=== PATIENT | female | born 1990 | race Caucasian/White ===

== ENCOUNTER 2025-02-28 09:18 | Outpatient (AMB) | payer OTHER, SELFPAY ==
--- NOTE | 2025-02-28 09:19 | A.OFFVIS_ITS ---
Vital Signs 02/28/25 09:23 Height 5 ft 4.37 in Weight 123 lb BMI 20.9 BP 100/70 Blood Pressure Location Lt brachial Position Sitting Pulse 99 Pulse Source Pulse Oximeter Pulse Oximetry (%) 100 Oxygen Delivery Method Room Air Intake Visit Reasons: RA Intake Note: Patient presents today for RA. Allergies methotex Allergy (Mild, Uncoded 02/28/25 09:24) Anaphylaxis penicillin Allergy (Unknown, Uncoded 02/28/25 09:24) Anaphylaxis sulfa Allergy (Unknown, Uncoded 02/28/25 09:24) Anaphylaxis HPI HPI RA: Details: Flare occured with dental work in November. She had tooth extraction. Inplant was rejected by patient. Inplant was removed. She developed joint swelling in feet, ankles, and shoulders are locked - unable to move them up. Last tooth infection was in November. No recent infections. 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 Good respiratory effort Skin: No lesions seen MSK: Tender to palpate right 3rd MCP. Tender to palpate left 3rd PIP. Tender bilateral shoulders. Right shoulder abduction 45 degrees with limited external and internal rotation. Mild synovitis in bilateral knees left worse than right without tenderness on palpation. Normal range of motion of lower extremities. Tender right MTPs with synovitis present. Assessment & Plan Assessment & Plan (1) Rheumatoid arthritis: Comment: Uncontrolled. Flared after tooth extraction and dental implant. Code(s): M06.9 - Rheumatoid arthritis, unspecified Category: Medical Plan: Prednisone course prescribed [facility] Baseline labs ordered prior to restarting DMARD therapy Return to clinic in 1-2 months to discuss DMARD therapy She will be seeking another dentist opinion prior to pursuing dental implant again Letter for work written for patient Orders: Orders Creatinine Today M06.9 - Rheumatoid arthritis, unspecified C Reactive Protein Today M06.9 - Rheumatoid arthritis, unspecified Erythrocyte Sedimentation Rate Today M06.9 - Rheumatoid arthritis, unspecified Hepatitis B Core Antibody Today M06.9 - Rheumatoid arthritis, unspecified Hepatitis C Antibody Today M06.9 - Rheumatoid arthritis, unspecified T Spot TB Today M06.9 - Rheumatoid arthritis, unspecified Complete Blood Count Man Dif Today M06.9 - Rheumatoid arthritis, unspecified Alanine Aminotransferase Today M06.9 - Rheumatoid arthritis, unspecified Aspartate Amino Transferase Today M06.9 - Rheumatoid arthritis, unspecified Hepatitis B Surface Antigen Today M06.9 - Rheumatoid arthritis, unspecified Medications: New prednisone Take 4 tablets daily 5 days, 3 tablets daily 5 days, 2 tablet daily 5 days, 1 tablet daily 5 days then stop. Take prednisone with food. 5 mg PO DIRECTED 50 tabs 0RF omeprazole Take while on prednisone. 20 mg PO DAILY 30 caps 0RF Coding Level of Care Code Est Pt Level 4 (04045) Complex EM visit Add On G2211 Diagnoses Rheumatoid arthritis M06.9
[2025-02-28 09:23] VITALS: BP 100/70; PULSE 99; O2SAT 100; BMI 20.9
--- OUTSIDE RECORDS SUMMARY | 2025-02-28 10:07 | XMS_ITS | Encounter Summary ---
Author Organization [facility] Address [address] [place] [phone] Phone Care Team Providers Care Field Director Name Role Phone Richa Reyes MD Primary Care Provider Encounter Details Date Type Department Care Team (Late st Contact Info) Description 05/07/2017 Conversion Encounter [facility] [place] [address] [place] [address] Social History Tobacco Use Types Packs/Day Years Used Date Smoking Tobacco: Never Assessed Comments Unknown Sex and Gender Information Value Date Recorded Sex Assigned at Not on file Legal Sex Female 4:15 PM EDT Gender Identity Not on file Sexual Orientation Not on file documented as of this encounter Plan of Treatment Not on file documented as of this encounter Visit Diagnoses Not on filedocumented in this encounter Care Teams Field Director Relationship Specialty Start Date End Date Richa Reyes MD [address] [place] [address] PCP - General 05/01/17 12/21/22 documented as of this encounter
== END 2025-02-28 10:16 | disposition home or self-care (01) ==
LOC: HO.RHES 09:18
PROVIDERS: PCP Internal Medicine; Visit Provider Internal Medicine Rheumatology
DX: M06.9 Rheumatoid arthritis, unspecified (principal)
CPT/HCPCS: 99214; G2211

== ENCOUNTER → 2025-02-28 09:18 | Outpatient (BNVA) | payer OTHER, SELFPAY | PROVIDERS: PCP Internal Medicine; Visit Provider Internal Medicine Rheumatology | DX: M06.9 Rheumatoid arthritis, unspecified (principal) | CPT/HCPCS: 99212 ==

== ENCOUNTER 2025-04-17 13:11 | Outpatient (REF) | payer OTHER, SELFPAY ==
--- OUTSIDE RECORDS SUMMARY | 2025-04-17 13:56 | XMS_ITS | Clinical Summary ---
Author Organization [facility] Address [address] [place] [phone] Phone Care Team Providers Care Residential Monitor Name Role Phone Gordon Johns MD Primary Care Provider + Allergies Active Allergy Reactions Criticality Noted Date Comments Etanercept Swelling 11/10/2019 Adalimumab Hives 03/14/2020 Penicillins High 10/21/2018 Causes breathing problems Sulfa (Sulfonamide Antibiotics) High 10/21/2018 Causes breathing problems Medications norgestimate-et hinyl estradiol (TRI-PREVIFEM, 28,) 0.18/0.215/0.25 mg-35 mcg (28) Tab daily. Active valACYclovir (VALTREX) 500 MG tablet Take 500 mg by mouth daily as needed. Active fluconazole (DIFLUCAN) 200 MG tablet Take one pill PO day 1, then take 1/2 pill daily for the next 6 days. 4 tablet 9 Active Additional Information Patient not taking.Reported on 08/12/2019 predniSONE (DELTASONE) 5 MG tablet TAKE 1&1/2 PILLS BY MOUTH DAILY FOR 3 WEEKS. THEN TAPER TO 1 PILL BY MOUTH DAILY FOR 3 WEEKS. 52 tablet 9 Active Additional Information Patient not taking.Reported on 09/16/2019 leflunomide (ARAVA) 20 MG tablet TAKE 1 TABLET BY MOUTH EVERY DAY 30 tablet 1 0 Active Additional Information Patient not taking.Reported on 06/05/2020 FLUCONAZOLE ORALIndications :11/10/19 has not started yet every 3 (three) days. Indications: 11/10/19 has not started yet Active predniSONE (DELTASONE) 5 MG tablet Take pills PO daily. 45 tablet 2 0 Active Additional Information Patient not taking.Reported on 03/14/2020 predniSONE (DELTASONE) 5 MG tablet Take 1 tablet (5 mg total) by mouth daily. 7 tablet 0 Active Additional Information Patient not taking.Reported on 06/05/2020 azaTHIOprine (IMURAN) 50 mg tablet TAKE 1 TABLET BY MOUTH TWICE A DAY 180 tablet 2 0 Active Additional Information Patient not taking.Reported on 08/08/2020 cyclobenzaprine (FLEXERIL) 10 MG tablet 10 mg daily. Active FLUoxetine (PROZAC) 10 MG capsule 10 mg daily. Active ibuprofen (ADVIL,MOTRIN) 600 MG tablet 600 mg as needed. Active LORazepam (ATIVAN) 0.5 MG tablet as needed. Active methocarbamoL (ROBAXIN) 500 MG tablet 500 mg as needed. Active Active Problems Problem Noted Date Diagnosed Date Acute foot pain, right 08/08/2020 Drug-induced skin rash 12/16/2019 Oral thrush 07/06/2019 Rheumatoid arthritis involvi ng multiple sites with positive rheumatoid factor 05/25/2019 Family History Medical History Relation Comments Diabetes Maternal Grandfather Lymphoma Maternal Grandfather Breast cancer Maternal Grandmother Osteoarthritis Mother Rheumatoid arthritis Paternal Grandmother Breast cancer Sister Relation Status Comments Father Alive Maternal Grandfather Maternal Grandmother Mother Alive Paternal Grandmother Sister Social History Tobacco Use Types Packs/Day Years Used Date Smoking Tobacco: Every Day Cigarettes Smokeless Tobacco: Never Education Answer Date Recorded Are you interested in more education? Not on sun e 01/16/2023 Are you concerned about learning? Not on file 01/16/2023 No 01/16/2023 No 01/16/2023 Digital Access Answer Date Recorded No 02/17/2023 No 02/17/2023 No 02/17/2023 Reliable internet access at home? Not on file 02/17/2023 Device with a working camera? Not on file Comments Unknown Sex and Gender Information Value Date Recorded Sex Assigned at Not on file Legal Sex Female 10:49 AM EDT Gender Identity Not on file Sexual Orientation Not on file Last Filed Vital Signs Vital Sign Reading Time Taken Comments Blood Pressure 124/86 08/08/2020 2:41 PM EST Pulse - - Temperature 36.6 C (97.8 F) 08/08/2020 2:41 PM EST Respiratory Rate - - Oxygen Saturation - - Inhaled Oxygen Concentration - - Weight 49 kg (108 lb) 09/03/2020 11:05 AM EST Height 157.5 cm (5' 2 ) 09/03/2020 11:05 AM EST Body Mass Index 19.75 09/03/2020 11:05 AM EST Plan of Treatment Health Maintenance Due Date Last Done Comments DEPRESSION SCREENING 2000 SMOKING Hx and SMOKELESS TOBACCO SCREENING 2001 HEPATITIS C SCREENING 2006 HIV ONE-TIME SCREENING (18-65 YEARS) 2006 PNEUMOCOCCAL VACCINES (0-49 years) (1 of 2 - PCV) 12/09/2007 PAP SMEAR 2009 Adult Td,Tdap Booster 03/26/2011 03/26/2001 CREATININE LEVEL 04/23/2021 04/23/2020, , 05/25/2019 ALKALINE PHOSPHATASE LEVEL 06/23/202106/23, 04/23/2020, 09/16/2019, Additional history exists COVID-19 VACCINE (3 - Pfizer risk series) 10/22/2021 09/24/2021, 09/03/2021 HIB VACCINES Completed 06/20/1990 HEPATITIS A VACCINES Aged Out No long er eligible based on patient's age to complete this topic MENINGOCOCCAL VACCINES (ACWY) Aged Out No longer eligible based on patient's age to complete this topic MENINGOCOCCAL VACCINES (B) Aged Out N o longer eligible based on patient's age to complete this topic Medical Devices Not on file Procedures Procedure Name Priority Date/Time Associated Diagnosis Comments LFTS (HEPATIC PANEL) Routine 06/23/2020 12:44 PM EDT Rheumatoid arthritis involving multiple sites with positive rheumatoid factor COMPREHENSIVE METABOLIC PANEL Routine 04/23/2020 1:35 PM EDT Rheumatoid arthritis involving multiple sites with positive rheumatoid factor from Last 3 Months or Most Recently Relevant to Health Maintenance Results * (ABNORMAL) LFTs (hepatic panel) (06/23/2020 12:44 PM EDT) ALKALINE PHOSPHATASE 38(L) 39 - 117 U/L [facility] TOTAL BILIRUBIN 0.4 0.0 - 1.2 mg/dL [facility] DIRECT BILIRUBIN <0.2 0 - 0.3 mg/dL [facility] Bilirubin (Indirect) NOT CALCULATED 0 - 1.5 mg/dL [facility] AST 20 0 - 37 U/L [facility] ALT 13 0 - 40 U/L [facility] TOTAL PROTEIN 7.0 6.5 - 8.0 g/dL [facility] ALBUMIN 4.6 3.9 - 4.8 g/dL [facility] GLOBULIN 2.4 1 - 4.8 g/dL [facility] A/G Ratio 1.92 1.00 - 4.80 RATIO [facility] Blood 06/23/2020 12:4 4 PM EDT 06/23/2020 12:45 PM EDT us [facility] ORDERABLES Fi nal Result Performing Organization Address City/State/[facility] Co de Phone Number [address] [phone] * (ABNORMAL) Comprehensive metabolic panel (04/23/2020 1:35 PM EDT) SODIUM 137 133 - 146 mmol/L [facility] POTASSIUM 4.2 3.3 - 5.1 mmol/L [facility] CHLORIDE 103 96 - 108 mmol/L [facility] CO2 26 21 - 35 mmol/L [facility] BUN 7 6 - 19 mg/dL [facility] CREATININE 0.60 0.5 - 1.5 mg/dL [facility] GLUCOSE 91 70 - 99 mg/dL [facility] ALBUMIN 4.3 3.9 - 4.8 g/dL [facility] TOTAL PROTEIN 6.4(L) 6.5 - 8.0 g/dL [facility] CALCIUM 8.7 8.4 - 10.3 mg/dL [facility] ALKALINE PHOSPHATASE 32(L) 39 - 117 U/L [facility] TOTAL BILIRUBIN 0.3 0.0 - 1.2 mg/dL [facility] AST 22 0 - 37 U/L [facility] ALT 12 0 - 40 U/L [facility] GLOBULIN 2.1 1 - 4.8 g/dL [facility] EGFR >120 >59 mL/min/1.7 3m2 [facility] Comment:Estimated glomerular filtration rate calculated using the CKD-EPI equation. ANION GAP 12 10 - 20 mmol/L [facility] Blood 04/23/2020 1:35 PM EDT 04/23/2020 1:36 PM EDT [facility] ORDER[facility] nal Result [facility] [address] [place] [address] from Last 3 Months or Most Recently Relevant to Health Maintenance [place] [address] [place] [address] [facility] [employer] [facility] [employer] [facility] [employer] DIRECT [employer] [place] [address] [address] [place] [address] [employer] DIRECT [employer] DIRECT [employer] [place] [address] [employer] DIRECT [facility] DIRECT Care Teams Residential Monitor Relationship Specialty Start Date End Date Gordon Johns MD [address] [place] [address] [address] [place] [address] PCP - General Internal Medicine 05/03/19 Additional Source Comments The information contained in this document represents components of the legal health record. It is not the complete legal health record.[facility]
--- OUTSIDE RECORDS SUMMARY | 2025-04-17 13:56 | XMS_ITS | Data Portability ---
Author Organization [facility] Address [address] [place] [address] Care Team Providers Care Barrel Bridge Assembler Name Role Phone MALLORY NDIAYE Primary Care Provider Assessment No assessment recorded. Plan of Treatment Reminders Order Date Submit Date Provider Last Modified By Organization Details Last Modified Time Details Appointments None recorded. Lab rapid strep group A, throat 2022 023 [email or web address] [facility], [address] [place] [address], [id number], 17:43:42 culture, respiratory 2022 023 [place] [facility], [address] [place] [address], [place], [address], 3 12:05:50 Referral None recorded. Procedures None recorded. Surgeries None recorded. Imaging None recorded. Medication Orders cyclobenzap rine 5 mg tablet 2022 023 [facility][id number], [address] [place], [address], 3 08:06:36 meloxicam 7.5 mg tablet 2022 023 [facility]1972, [address] [place], [address], 3 08:06:36 Patient TargetsNo targets recorded. Patient Instructions Encounter Date Encounter Id Patient Instructions Last Modified By Organization Details Last Modified Time 03/18/2023 [id number] sore throat: car e instructions [email or web address] Not available 03/18/2023 17:43:41 Based on your Presentation, Exam, and Lab Testing you are being diagnosed with Pharyngitis. Your Rapid Strep Test was Negative. Most likely your sore throat is being caused by a virus, post nasal drip, or silent acid reflux. I am going to send a Throat Culture to the lab for you to make sure you don't have a different form of strep in your throat. This will take about 72 hours for that result to return. We will contact you if it positive - if for some reason you don't get a copy of your results or hear from us - please contact our office. The following are my other recommendations to help with symptoms and is important for this diagnosis: 1. Do not share any food or drinks - strep is passed through direct saliva exchange (NOT IN THE AIR) 2. Take Ibuprofen or Tylenol if you do not have any allergies to these medications. If you take a blood thinner you should not take NSAIDS like Ibuprofen. These medication will help with the inflammation in your respiratory tract which should help the cough. (I would alternate between Tylenol 650 mg and your Ibuprofen 600 mg every 4 hours) 3. Do not take any Cold Medications that have a Decongestant in it - this will dry out your throat and make the sore throat worse. 4. Drinking Hot Tea with honey can help coat and soothe your throat. 5. You would be considered contagious for the next 24-48 hours, or until fever resolves. I would be seen again if you develop any of the following symptoms. 1. Fever > 101.0 2. Stiff neck - where you can't turn your neck 3. Trouble swallowing your saliva - drooling 4. Swelling of a lymph node in your throat that is painful to touch 5. Difficulty breathing 6. Severe Headache Thank you for using [facility] today, please feel free to contact our office if you have any questions or concerns. Not available 03/18/2023 17:43:39 03/22/2023 [id number] neck spasm: exercises [email or web address] Not available 03/24/2023 00:27:55 neck spasm: care instructions [email or web address] Not available 03/24/2023 00:27:55 You are being diagnosed with a Trapezius Muscle spasm based on your exam. The following are my recommendations to help with your symptoms: 1. Heating pad to the back of the neck. 2. Stretch your neck regularly 3. Try to sleep with 1 pillow and support the arm. 4. It is ok to Take Tylenol with what I gave you. You were prescribed Prednisone - Here is some general Information regarding this medication. 1. Make sure you take with Food 2. Do not take right before bedtime -this should be taken during the day because it may make you a little more wired. May keep you from sleeping. 3. Prednisone will increase glucose -so if you are a diabetic then you will need to monitor your glucose closely. Please d/c if glucose goes above 300. 4. Do not take this medication with Ibuprofen You were prescribed a Muscle relaxant - this may make you drowsy. Do not drive with the medication. Also you only have to take this medication as needed. You do not need to complete the full course. Please go immediately to the Emergency room if you develop any: 1. Shortness of breath 2. Coughing up blood 3. Significant chest pain 4. or Dizziness.light headedness Thank you for using [facility]. Please feel free to contact us if you have any questions or concerns. [email or web address] Not available 03/22/2023 20:14:48 Reason for Referral None Reported. Results Created Date Observation Date Name Description Value Unit Range Abnormal Flag Note LastModifiedBy Organization Detail LastModifiedTime 03/18/20 23 03/22/2023 UPPER RESPI RATOR Y CULTU RE upper respiratory culture FINAL REPORT Not Available [facility] ([facility]) [address] [place], [address], 03/22/2023 12:05:50 03/18/20 23 03/22/2023 UPPER RESPI RATOR Y CULTU RE result 1 COMMEN T Routi ne respi rator y dinora Not Available [facility] ([facility]) [address] [place], [address], 03/22/2023 12:05:50 03/18/20 23 03/18/2023 rapid strep group A, throa t Unknown Analyte Normal = Negati ve Not Available [address] [facility], [place], [address], 03/18/2023 17:16:20 03/18/20 23 03/18/2023 rapid strep group A, throa t Unknown Analyte negati ve Not Available [address] [place] [address], [place], [address], 03/18/2023 17:16:20 Result Notes None recorded. Problems Name Problem SNOMED Code Status Onset Date Resolution Date Notes Provider Name and Address Organization Details Recorded Time Myocardial infarction 64758374 Completed 202103/21/2022 DARRON georges PA - [facility] 19:35:44 Rheumatoid arthritis 16951213 Active 2022 LELO georges PA - [facility] 17:12:02 Problem Notes None recorded. Procedures Surgical History Date Name Laterality Status Provider Name and Address Organization Details Recorded Time Appendectomy completed LELO KNOTT PA - [facility] 03/18/2023 17:13:23 hysterectomy completed LELO KNOTT PA - [facility] 03/18/2023 17:13:40 Imaging Results None recorded. Procedure Notes None recorded. Medical Equipment None Reported. Allergies Allergen ID Allergen Name Allergen Category Reaction Reaction Severity Criticality Documentation Date Start Date Code Code System Note Provider Name and Address Organization Details Recorded Time 031533 Substance with sulfonami de structure and antibacte rial mechanism of action (substanc e) medicatio n Not available Not available Not available 03/18/2023 89904 8003 SNOMED LELO georges PA - [facility] 17:10:51 080218 Product containin g penicilli n (product) medicatio n Not available Not available Not available 03/18/2023 45561 8001 SNOMED LELO georges, PA - [facility] 17:10:57 Medications Name Sig Start Date Stop Date Status Note LastModified by Organization Details LastModified Time cetirizine 10 mg tablet TAKE ONE PILL ONCE DAILY FOR ITCHING. active Not Available Not Available No t Available fluconazole 150 mg tablet TAKE 1 TABLET BY MOUTH EVERY 72 HOURS active Not Available Not Available No t Available prednisone 5 mg tablet TAKE 4 TABS DAILY 5 DAYS, 3 TABS DAILY 5 DAYS, 2 TABS DAILY 5 DAYS, 1 TAB DAILY 5 DAYS THEN STOP active Not Available Not Available No t Available leflunomide 10 mg tablet TAKE 1 TABLET DAILY active Not Available Not Available No t Available Remicade 100 mg intravenous solution Inject by intravenous route. active Not Available Not Available No t Available metronidazol e 500 mg tablet TAKE 1 TABLET BY MOUTH FOUR TIMES A DAY active Not Available Not Available Not Available amlodipine 5 mg tablet TAKE 1 TABLET BY MOUTH EVERY DAY active Not Available Not Available No t Available ciprofloxaci n 500 mg tablet TAKE 1 TABLET BY MOUTH TWICE A DAY active Not Available Not Available No t Available aspirin 81 mg tablet,delay ed release TAKE 1 TABLET BY MOUTH EVERY DAY active Not Available Not Available No t Available Nicotrol 10 mg inhalation cartridge PLEASE DISPENSE INHALER AND WITH CARTIDGES. USE IN COMBINATION WITH PATCH. active Not Available Not Available Not Available meloxicam 7.5 mg tablet TAKE 1 TABLET BY MOUTH EVERY DAY active Not Available Not Available No t Available oxycodone-ac etaminophen 5 mg-325 mg tablet TAKE 1 TABLET BY MOUTH EVERY 6 HOURS NEEDED active Not Available Not Available No t Available propranolol 10 mg tablet TAKE 1-2 TABLET BY MOUTH TWICE A DAY active Not Available Not Available No t Available triamcinolon e acetonide 0.1 % topical ointment APPLY TO SKIN FROM THE NECK DOWN ONCE TO TWICE DAILY NEEDED. active Not Available Not Available No t Available nicotine 21 mg/24 hr daily transdermal patch APPLY 2 PATCHES TOPICALLY DAILY FOR AT LEAST 3 MONTHS (42MG/DAY) active Not Available Not Available N ot Available nitroglyceri n 0.[address] 1TAB UNDER TONGUE DAILY NEEDED ONSET CHEST PAIN MAY REPEAT EVERY 5 MINS. MAX 3W/IN 15MINS. active Not Available Not Available No t Available docusate sodium 100 mg capsule TAKE 1 CAPSULE BY MOUTH TWICE A DAY active Not Available Not Available No t Available sertraline 25 mg tablet TAKE 1 TABLET BY MOUTH EVERY DAY active Not Available Not Available No t Available ondansetron 4 mg disintegrati ng tablet TAKE 1 TABLET BY MOUTH EVERY 8 HOURS NEEDED active Not Available Not Available No t Available neomycin-fausto ymyxin-hydro anahy 3.5 mg-10,000 unit/mL-1 % ear drops,susp INSTILL 4 DROPS INTO AFFECTED EAR(S) 3 TIMES A DAY active Not Available Not Available Not Available cyclobenzapr ine 5 mg tablet TAKE 1 TABLET BY MOUTH EVERYDAY AT BEDTIME NEEDED MUSCLE SPASMS active Not Available Not Available No t Available aspirin active Not Available Not Avail able Not Available amlodipine active Not Available Not Av ailable Not Available leflunomide active Not Available Not A vailable Not Available Tri-Estaryll a (28) 0.18 mg(7)/0.215 mg(7)/0.25 mg(7)-0.035 mg tablet TAKE 1 TABLET BY MOUTH EVERY DAY active Not Available Not Available No t Available Paxlovid 300 mg (150 mg x 2)-100 mg tablets in a dose pack TAKE 3 TABLETS BY MOUTH TWICE A DAY active Not Available Not Available No t Available Vitals Date Recorded Body height Body mass index (BMI) Body weight Oxygen saturation Oxygen saturation in Arterial blood by Pulse oximetry Heart rate Respiratory rate Body temperature Systolic And Diastolic Provider Name and Address Organization Details Last Updated DateTime 3 157.48 cm 20.1 kg/m2 55970.1 6 g 98 % 98 % 72 /min 18 /min 98.2 [degF] 132/88 mm[Hg] LELO KNOTT PA - [facility] 3 17:15:41 Date Recorded Body height Body mass index (BMI) Body weight Pain severity - 0-10 verbal numeric rating [Score] - Reported Oxygen saturation Oxygen saturation in Arterial blood by Pulse oximetry Heart rate Respiratory rate Body temperature Systolic And Diastolic Provider Name and Address Organization Details Last Updated DateTime 3 157.48 cm 20.1 kg/m2 26390.1 6 g 9 97 % 97 % 94 /min 16 /min 98.2 [degF] 126/78 mm[Hg] DARRON COPPOLA PA - [facility] 3 19:38:45 Social History Question Answer Notes LastModified by Organizat ion Details LastModified Time Tobacco Smoking Status Current Every Day Smoker [facility] 03/18/2023 17:13:59 Which Illicit Or Recreational Drugs Have You Used? Marijuana Information not available 03/18/2023 Have You Had Direct Contact, Or Contact During Intimacy, With Monkeypox Rash, Scabs, Or Body Fluids From A Person With Monkeypox? No Information not available 03/18/2023 How Much Tobacco Do You Smoke? 0.5 PPD Information not available 03/18/2023 Have You Recently Traveled Abroad? No Information not available 03/18/2023 Are You Currently In School? No Information not available 03/18/2023 Sex: Unknown Functional Status Question Answer Note LastModified by Organizat ion Details LastModified Time Do you use any illicit or recreational drugs? Yes Information not available 03/18/2023 Do you or have you ever used any other forms of tobacco or nicotine? No Information not available 03/18/2023 What is your level of alcohol consumption? Occasional Information not available 03/18/2023 Are you currently employed? Yes Information not available 03/18/2023 Mental Status None recorded. Family History Relationship Description Onset Age of this Age Resolved Age Notes LastModified by Organization Details LastModified Time Father No current problems or disability Not available 02/20 17:13:15 Mother No current problems or disability Not available 02/20 17:13:15 Medical History No medical history recorded. Gynecological History Statement/Question Response Is there any chance of ? No Obstetrics History GPAL:G 0 P 0 0 0 0 Immunizations Vaccine Type Date Status Note Provider Nam e and Address Organization Details Recorded Time COVID-19, mRNA, LNP-S, PF, 30 mcg/0.3 mL dose 09/24/2021 completed LELO KNOTT null, PA - [facility] 03/18/2023 17:10:43 COVID-19, mRNA, LNP-S, PF, 30 mcg/0.3 mL dose 09/03/2021 completed LELO KNOTT null, PA - [facility] 03/18/2023 17:10:43 Past Encounters Encounter ID Performer Location Encounter Start Date Encounter Closed Date Diagnosis/Indication Diagnosis SNOMED-CT Code Diagnosis ICD10 Code Diagnosis Note [id number] [facility]O FRIAS [address] [place] [address] 03/18/2023 16:20:37 03/18/2023 17:45:11 Acute pharyngitis 096451276 J02.9 [id number] [facility]ERTO FRIAS [address] [place] [address] 03/22/2023 19:09:45 03/22/2023 20:16:11 Muscle spasm of cervical muscle of neck 1971599756 04 M62.838 Health Concerns Section Related Observation LastModified by Organization Detai ls LastModified Time None Recorded Concern Status LastModified by Organization Details LastModified Time None Recorded Advance Directives Directive None Recorded Payers Insurance Date Sequence Insurance Name Policy Number Policy Tom Covered Member ID Tom Member ID Guarantor Name 03/18/2023 1 [facility] (POS) [id number] Mami E Foucher [id number] Mami Foucher 03/22/2023 1 [facility] PUBLIC [employer] - DIRECT CONNECTORCARE TYPE I (HMO) [id number] Mami E Foucher [id number] Mami Foucher OBGyn Episode No OBEpisode recorded.
--- OUTSIDE RECORDS SUMMARY | 2025-04-17 13:56 | XMS_ITS | Encounter Summary ---
Author Organization [facility] Address [address] [place] [address] Phone Care Team Providers Care President & Founder Name Role Phone Richa Reyes MD Primary Care Provider Encounter Details Date Type Department Care Team (Late st Contact Info) Description 05/07/2017 Conversion Encounter [facility] [place] [address] [place] [address] Social History Tobacco Use Types Packs/Day Years [...] on filedocumented in this encounter Care Teams President & Founder Relationship Specialty Start Date End Date Richa Reyes MD [address] [place] [address] PCP - General 05/01/17 12/21/22 documented as of this encounter
--- OUTSIDE RECORDS SUMMARY | 2025-04-17 13:56 | XMS_ITS | Encounter Summary ---
Author Organization [facility] Address [address] [place] [address] Care Team Providers Care Geotechnicial Properties Technician Name Role Phone Uche Iglesias DO Primary Care Provider Umesh Maracno MD Unavailable [phone] Flower Hummel PA-C Primary Care Provider Un available Mary Sharma MACHINE SETTER Unavailable [phone] Johana Mauricio MACHINE SETTER Unavailable [phone] Encounter Details Date Type Department Care Team Description 05/30/2022 SCAN Medical Records [address] [place] [address] Abstract, Provider Social History Tobacco Use Types Packs/Day Years Used Date Smoking Tobacco: Every Day Cigarettes 1 Smokeless Tobacco: Former Alcohol Use Standard Drinks/Week Comments Yes 0 (1 standard drink = 0.6 oz pur e alcohol) rarely Sex Assigned at Date Recorded Not on file documented as of this encounter Plan of Treatment Not on file documented as of this encounter Procedures Procedure Name Priority Date/Time Associated Diagnosis Comments OUTSIDE EKG Routine 05/30/2022 documented in this encounter Results * OUTSIDE EKG (05/30/2022) Provider Abstract CARDIOLOGY documented in this encounter Visit Diagnoses Not on filedocumented in this encounter Care Teams Geotechnicial Properties Technician Relationship Specialty Start Date End Date Uche Iglesias DO PCP - General Internal Medicine 06/29/18 10/14/22 Flower Hummel PA-C [address] [place] [address] [address] [place] [address] PCP - General Internal Medicine 10/15/22 Umesh Zuniga MD [address] [place] [address] [address] [place] [address] Machine Learning Intern Cardiovascular Disease 08/29/22 Mary Sharma NP [address] [place] [address] [address] [place] [address] Nurse Practitioner Cardiology 06/10/23 12/17/23 Johana Mauricio NP [address] [place] [address] [facility] [place] [address] Nurse Practitioner Cardiology 07/01/23 documented as of this encounter
[2025-04-17 17:38] LABS: Baso%MD 1.1 %; Eos%MD 3.8 %; Hematocrit 45.8 % (37.0-47.0); Hemoglobin 14.9 g/dl (12.0-16.0); IG%MD 0.3 %; Lymph%MD 28.8 %; Mean Corpuscular HGB Conc 32.5 g/dl (31.0-35.0); Mean Corpuscular Hemoglobin 30.5 pg (27.0-33.0); Mean Corpuscular Volume 93.9 fL (80.0-98.0); Mono%MD 7.8 %; NRBC Abs Auto 0.000 X10*3/uL (0.0-0.012); NRBC Pct Auto 0.0 /100WBC (0.0-0.2); Neut%MD 58.2 %; Platelet Count 305 X10*3/uL (160-400); Red Blood Count 4.88 X10*6/uL (4.20-5.50); White Blood Count 9.2 X10*3/uL (4.8-10.8)
[2025-04-17 17:49] LABS: Alanine Aminotransferase 19 U/L (0-31); Aspartate Amino Transferase 27 U/L (5-31); Estimated Glomerular Filt Rate > 60
[2025-04-17 18:17] LABS: Atypical Lymph Absolute Manual 0.2 x10*3/uL; Atypical Lymphs Percent Manual 2 % (0-6); Band Neutrophils Percent 0 % (3-5); Basophils Abs Manual 0.2 X10*3/uL (0.0-0.2); Basophils Percent Manual 2 % (0-2); Eosinophils Absolute Manual 0.1 X10*3/uL (0.0-0.4); Eosinophils Percent Manual 1 % (0-4); Lymphocytes Absolute Manual 2.1 X10*3/uL (1.2-4.9); Lymphocytes Percent Manual 23 % (20-40); Monocytes Absolute Manual 1.0 X10*3/uL (0.1-1.2); Monocytes Percent Manual 11 % (2-11); Myelocytes Absolute 0.1 X10*/uL; Myelocytes Percent 1 %; Neutrophils Absolute Manual 5.5 X10*3/uL (2.0-8.3); Neutrophils Percent Manual 60 % (45-73)
[2025-04-17 18:18] LABS: RBC Morphology NORMAL
[2025-04-18 03:57] LABS: HBc Num1 0.07 S/CO (0.00-0.79); HBsAGNum1 0.34 S/CO (0.00-0.99); Hepatitis B Surface Antigen Negative (Negative); ~HepC Num1 0.09 S/CO (0.00-0.79); ~Hepatitis C Antibody Nonreactive (Nonreactive)
[2025-04-20 11:08] LABS: TS Negative Control Passed; TS Panel A 0; TS Panel B 0; TS Positive Control Passed; TSpotTB Negative (Negative)
== END 2025-04-17 13:12 | disposition home or self-care (01) ==
LOC: HO.HKASLDS 13:11
PROVIDERS: Visit Provider Internal Medicine Rheumatology
DX: M06.9 Rheumatoid arthritis, unspecified (principal)
CPT/HCPCS: 36415; 82565; 84450; 84460; 85007; 85027; 85652; 86140; 86481; 86704; 86803; 87340

== ENCOUNTER 2025-04-25 10:38 | Outpatient (AMB) | payer OTHER, SELFPAY ==
[2025-04-25 11:06] VITALS: BP 110/80; PULSE 76; O2SAT 100; BMI 21.3
--- NOTE | 2025-04-25 11:06 | A.OFFVIS_ITS ---
Vital Signs 04/25/25 11:06 Height 5 ft 4 in Weight 124 lb BMI 21.3 BP 110/80 Blood Pressure Location Lt brachial Position Sitting Pulse 76 Pulse Source Pulse Oximeter Pulse Oximetry (%) 100 Oxygen Delivery Method Room Air Intake Visit Reasons: 2 months Intake Note: Patient presents today for RA. Accompanied by: Self / Same As Patient Allergies methotex Allergy (Mild, Uncoded 02/28/25 09:24) Anaphylaxis penicillin Allergy (Unknown, Uncoded 02/28/25 09:24) Anaphylaxis sulfa Allergy (Unknown, Uncoded 02/28/25 09:24) Anaphylaxis HPI HPI 2 months: Details: She had relief with prednisone course. Pain and swelling returned after she completed prednisone course. Right ankle is swollen. She continues to have pain in multiple joints. Morning stiffness is 30 minutes. 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 Good respiratory effort Skin: No lesions seen MSK: Tender to palpate bilateral MCPs and PIPs. Tender bilateral shoulders. Right shoulder abduction 160 degrees degrees with limited external and internal rotation due to pain. Mild left suprapatellar effusion with tenderness on palpation. Normal range of motion of lower extremities. Tender bilateral MTPs with right MTP synovitis present. Assessment & Plan Assessment & Plan (1) Rheumatoid arthritis: Comment: Uncontrolled. Flared after tooth extraction and dental implant. She had temporary benefit with prednisone course. She is planning to have another dental procedure to have a cap placed next week. We discussed next steps in treatment. We also discussed the risk of infection with prednisone use. We discussed treatment with Actemra versus Orencia. Discussed mechanism of action, side effects, benefits and drug monitoring. 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 Failed NSAIDs meloxicam and naproxen initially for treatment of palindromic rheumatism. Hydroxychloroquine caused a trunk rash and aggression. Mouth sores on methotrexate 7.5 mg once weekly with folic acid. Enbrel caused drug rash with hives that lasted 2 months. Humira caused rash with hives. Reaction to Cimzia where she locked up the InStent she gave herself the subcutaneous injection and could not move afterwards. Remicade induction dose March 2021 1st dose caused abdominal pain, loose stools, ear popping, rhinorrhea. She then developed ear infection and thrush. She had no future reaction or infection after 2nd induction dose without pretreatment. 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 She was on leflunomide 01/2023-01/2024. Recurrent URIs with combination Xeljanz and leflunomide leading to discontinuation January 2025. Prednisone >than 20 mg q.day causes aggression. Code(s): M06.9 - Rheumatoid arthritis, unspecified Category: Medical Plan: She will start course of prednisone after follow up visit with dentist status post dental procedure. At that point she would have also completed prophylactic antibiotic with Z-Ezio. If there is no risk for infection at follow-up visit with dentist, she will then start prednisone course for RA management. Prednisone course prescribed. Lipid panel ordered After lab results is back, I will process PA for Actemra 162mg subcutaneous injection. Once Actemra is approved, she will need nurse teaching visit for 1st dose administration. She will also need labs 1 month after starting Actemra with fasting lipid panel, CBC, ANC, creatinine, AST, ALT, ESR, CRP. Letter written for patient's work [facility] Return to clinic in 3-4 months Orders: Orders Lipid Panel Today M06.9 - Rheumatoid arthritis, unspecified Medications: Changed From prednisone Take 4 tablets daily 5 days, 3 tablets daily 5 days, 2 tablet daily 5 days, 1 tablet daily 5 days then stop. Take prednisone with food. 5 mg PO DIRECTED 50 tabs 0RF To prednisone Take 4 tablets daily 5 days, 3 tablets daily 5 days, 2 tablet daily 5 days, 1 tablet daily 5 days then stop. Take prednisone with food. Start prednisone after dental procedure. 5 mg PO DIRECTED 50 tabs 0RF Coding Level of Care Code Est Pt Level 5 (07226) Complex EM visit Add On G2211 Diagnoses Rheumatoid arthritis M06.9 Time Spent (min) 40
--- OUTSIDE RECORDS SUMMARY | 2025-04-25 11:18 | XMS_ITS | Encounter Summary ---
Author Organization [facility] Address [address] [place] [address] Phone Care Team Providers Care Network Security Administrator Name Role Phone Richa Reyes MD Primary Care Provider Encounter Details Date Type Department Care Team (Late st Contact Info) Description 05/07/2017 Conversion Encounter [facility] [place] [address] [place] [address] Social History Tobacco Use Types Packs/Day Years [...] on filedocumented in this encounter Care Teams Network Security Administrator Relationship Specialty Start Date End Date Richa Reyes MD [address] [place] [address] PCP - General 05/01/17 12/21/22 documented as of this encounter
== END 2025-04-25 11:37 | disposition home or self-care (01) ==
PROVIDERS: PCP Internal Medicine; Visit Provider Internal Medicine Rheumatology
DX: M06.9 Rheumatoid arthritis, unspecified (principal)
CPT/HCPCS: 99215

== ENCOUNTER → 2025-04-25 10:38 | Outpatient (BNVA) | payer OTHER, SELFPAY | PROVIDERS: PCP Internal Medicine; Visit Provider Internal Medicine Rheumatology | DX: M06.09 Rheumatoid arthritis without rheumatoid factor, multiple sites (principal); M25.50 Pain in unspecified joint | CPT/HCPCS: 99212 ==

== ENCOUNTER 2025-07-24 10:50 | Outpatient (REF) | payer OTHER, SELFPAY ==
--- OUTSIDE RECORDS SUMMARY | 2025-07-24 13:24 | XMS_ITS | Clinical Summary ---
Author Organization [facility] Address [address] [place] [address] Phone Care Team Providers Care Cnc Mill Operator Name Role Phone Gordon Johns MD Primary [...] - Pfizer risk series) 10/22/2021 09/24/2021, 09/03/2021 INFLUENZA VACCINE (#1) 2025 HIB VACCINES Completed 06/20/1990 HEPATITIS A VACCINES [...] with positive rheumatoid factor COMPREHENSIVE METABOLIC PANEL (CMP) Routine 04/23/2020 1:35 PM EDT Rheumatoid arthritis involving multiple sites with positive rheumatoid factor from Last 3 Months or Most Recently Relevant to Health Maintenance Results * (ABNORMAL) LFTs (hepatic panel) (06/23/2020 12:44 PM EDT) ALKALINE PHOSPHATASE 38(L) 39 - 117 U/L [facility] TOTAL BILIRUBIN 0.4 0.0 - 1.2 mg/dL [facility] DIRECT BILIRUBIN <0.2 0 - 0.3 mg/dL [facility] Bilirubin (Indirect) NOT CALCULATED 0 - 1.5 mg/dL [facility] AST 20 0 - 37 U/L [facility] ALT 13 0 - 40 U/L [facility] TOTAL PROTEIN 7.0 6.5 - 8.0 g/dL [facility] ALBUMIN 4.6 3.9 - 4.8 g/dL [facility] GLOBULIN 2.4 1 - 4.8 g/dL [facility] A/G Ratio 1.92 1.00 - 4.80 RATIO [facility] Blood 06/23/2020 12:4 4 PM EDT 06/23/2020 12:45 PM EDT us Apolinar Lynn PA LAB BLOOD BKR ORDERABLE S Final Result Performing Organization Address City/State/[facility] Co de Phone Number [address] [address] * (ABNORMAL) Comprehensive metabolic panel (04/23/2020 1:35 PM EDT) SODIUM 137 133 - 146 mmol/L [facility] POTASSIUM 4.2 3.3 - 5.1 mmol/L [facility] CHLORIDE 103 96 - 108 mmol/L [facility] CO2 26 21 - 35 mmol/L [facility] BUN 7 6 - 19 mg/dL [facility] CREATININE 0.60 0.5 - 1.5 mg/dL [facility] GLUCOSE 91 70 - 99 mg/dL [facility] ALBUMIN 4.3 3.9 - 4.8 g/dL [facility] TOTAL PROTEIN 6.4(L) 6.5 - 8.0 g/dL [facility] CALCIUM 8.7 8.4 - 10.3 mg/dL [facility] ALKALINE PHOSPHATASE 32(L) 39 - 117 U/L [facility] TOTAL BILIRUBIN 0.3 0.0 - 1.2 mg/dL [facility] AST 22 0 - 37 U/L [facility] ALT 12 0 - 40 U/L [facility] GLOBULIN 2.1 1 - 4.8 g/dL [facility] EGFR >120 >59 mL/min/1.7 3m2 [facility] Comment:Estimated glomerular filtration rate calculated using the CKD-EPI equation. ANION GAP 12 10 - 20 mmol/L [facility] Blood 04/23/2020 1:35 PM EDT 04/23/2020 1:36 PM EDT us Apolinar SHIPMAN LAB BLOOD BKR ORDERABLE S Final Result [facility] [address] [place] [address] from Last 3 Months or Most Recently Relevant to Health Maintenance [place] [address] [address] [employer] [facility]P[employer] DIRECT [employer] DIRECT [employer] [address] [place] [address] [place] [address] [employer] DIRECT [employer] [place] [address] [facility] DIRECT Care Teams Cnc Mill Operator Relationship Specialty Start Date End Date Gordon Johns MD [address] [place] [address] [address] [place] [phone] PCP - General Internal Medicine 05/03/19 Additional Source Comments The information contained in this document represents components of the legal health record. It is not the complete legal health record.[facility]
--- OUTSIDE RECORDS SUMMARY | 2025-07-24 13:24 | XMS_ITS | Encounter Summary ---
Author Organization [facility] Address [address] [place] [address] Phone Care Team Providers Care Head Of Maintenance Name Role Phone Richa Reyes MD Primary Care Provider [phone] Encounter Details Date Type Department Care Team (Late st Contact Info) Description 05/07/2017 Conversion Encounter [facility] [place] [address] [place] [address] Social History Tobacco Use Types Packs/Day Years [...] on filedocumented in this encounter Care Teams Head Of Maintenance Relationship Specialty Start Date End Date Richa Reyes MD [address] [place] [address] PCP - General 05/01/17 12/21/22 documented as of this encounter
--- OUTSIDE RECORDS SUMMARY | 2025-07-24 13:24 | XMS_ITS | Clinical Summary ---
Author Organization [facility] Address [address] [place] [address] Phone Care Team Providers Care Mattress Filler Name Role Phone Unavailable Primary Care Provider Unavailabl e Immunizations Immunization Administration Dates Next Due DTP 06/20/1999, 9,02/18/1999,1994,09/20/1990 Hep B, ped/adol 03/26/2001,11/06/2000,09/23/2000 Hib (PRP-T) 06/20/1990 IPV 06/20/1999, 9,02/18/1999,1993,09/20/1990 MMR 11/18/2000,03/20/1990 Td (adult) (MBL), 2 Lf tetan us toxoid, PF, adsorbed 03/26/2001 Family History Relation Name Status Comments Cousin Cousin: Diabete s mellitus Father Alive Father: Alive a nd well Mother Alive Mother: Alcohol ism Social History Tobacco Use Types Packs/Day Years Used Date Smoking Tobacco: Never Assessed Comments Unknown Sex and Gender Information Value Date Recorded Sex Assigned at Not on file Legal Sex Female 4:15 PM EDT Gender Identity Not on file Sexual Orientation Not on file Plan of Treatment Health Maintenance Due Date Last Done Comments Varicella Vaccines (1 of 2 - 13+ 2-dose series) 2001 DTaP,Tdap,and Td Vaccines (7 - Tdap) 03/26/2011 03/26/2001, 06/20/1999, 04/20/1999, Additional history exists HPV Vaccines (1 - 3-dose SCDM series) 12/09/2015 Influenza Vaccines (#1) 2025 COVID-19 Vaccine (2024- season) 2025 HIB Vaccines Completed 06/20/1990 IPV Vaccines Completed 06/20/1999, 03/23, 02/18/1999, Additional history exists MMR Vaccines Completed 11/18/2000, 03/20/1990 Hepatitis B Vaccines Completed 03/26/2001, 11/06/2000, 09/23/2000 Hepatitis A Vaccines Aged Out No long er eligible based on patient's age to complete this topic Men B Vaccine Aged Out No longer elig ible based on patient's age to complete this topic Meningococcal Vaccine Aged Out No giovanni angel eligible based on patient's age to complete this topic Pneumococcal Vaccine Aged Out No long er eligible based on patient's age to complete this topic
--- OUTSIDE RECORDS SUMMARY | 2025-07-24 13:24 | XMS_ITS ---
[...] 6. Severe Headache Thank you for using [facility] today, please feel free to contact our office if you have any questions or concerns. [email or web address] Not available 03/18/2023 17:43:39 03/22/2023 [id number] neck spasm: exercises [email or web address] Not available 03/24/2023 00:27:55 neck spasm: care instructions Not available 03/24/2023 00:27:55 You are being [...] or Dizziness.light headedness Thank you for using [facility]. Please feel free to contact us if you have any questions or concerns. [email or web address] Not available 03/22/2023 20:14:48 Reason for Referral None Reported. Results Created Date Observation Date Name Description Value Unit Range Abnormal Flag Note LastModifiedBy Organization Detail LastModifiedTime 03/18/20 23 03/22/2023 UPPER RESPI RATOR Y CULTU RE upper respiratory culture FINAL REPORT Not Available [facility] [address] [facility], [place], [address], 03/22/2023 12:05:50 03/18/2003/22/2023 UPPER RESPI RATOR Y CULTU RE result 1 COMMEN T Routi ne respi rator y dinora Not Available [facility] [address] [facility], [place], [address], 03/22/2023 12:05:50 03/18/2003/18/2023 rapid strep group A, throa t Unknown Analyte Normal = Negati ve Not Available [address] [place] [address], [phone], 03/18/2023 17:16:20 03/18/2003/18/2023 rapid strep group A, throa t Unknown Analyte negati ve Not Available [address] [place] [address], [phone], 03/18/2023 17:16:20 Result Notes None recorded. Problems Name Problem SNOMED Code Status Onset Date Resolution Date Notes Provider Name and Address Organization Details Recorded Time Myocardial infarction 60761292 Completed 202103/21/2022 UMBERTO Franks [facility] 19:35:44 Rheumatoid arthritis 41628132 Active 2022 UMBERTO Kohler [facility] 17:12:02 Problem Notes None recorded. Procedures Surgical [...] Name and Address Organization Details Recorded Time 707997 Substance with sulfonami de structure and antibacte rial mechanism of action (substanc e) medicatio n Not available Not available Not available 03/18/2023 80492 8003 SNOMED LELO georges PA - [facility] 17:10:51 041420 Product containin g penicilli n (product) medicatio n Not available Not available Not available 03/18/2023 18114 8001 SNOMED LELO georges PA - [facility] 17:10:57 Medications Name [...] Updated DateTime 3 157.48 cm 20.1 kg/m2 47812.1 6 g 98 % 98 % 72 /min 18 /min 98.2 [degF] 132/88 mm[Hg] LELO KNOTT [place] - [employer] [facility] 17:15:41 Date Recorded Body height Body mass index (BMI) Body weight Pain severity - 0-10 verbal numeric rating [Score] - Reported Oxygen saturation Oxygen saturation in Arterial blood by Pulse oximetry Heart rate Respiratory rate Body temperature Systolic And Diastolic Provider Name and Address Organization Details Last Updated DateTime 3 157.48 cm 20.1 kg/m2 96692.1 6 g 9 97 % 97 % 94 /min 16 /min 98.2 [degF] 126/78 mm[Hg] DARRON COPPOLA [place] [facility] 3 19:38:45 Social History Question Answer Notes LastModified by Anadys ion Details LastModified Time Tobacco Smoking Status Current Every Day Smoker LELO georges [place] [facility] 03/18/2023 17:13:59 Which Illicit Or Recreational [...] Functional Status Question Answer Note LastModified by [email or web address] ion Details LastModified Time Do you use [...] PF, 30 mcg/0.3 mL dose 09/24/2021 completed UMBERTO Kohler - [facility] 03/18/2023 17:10:43 COVID-19, mRNA, LNP-S, PF, 30 mcg/0.3 mL dose 09/03/2021 completed UMBERTO Kohler [facility] 03/18/2023 17:10:43 Past Encounters Encounter ID Performer Location Encounter Start Date Encounter Closed Date Diagnosis/Indication Diagnosis SNOMED-CT Code Diagnosis ICD10 Code Diagnosis IMO Codes Diagnosis Note [id number] UMBERTO FRIAS [address] [facility] [address] [place] [address] 03/18/2023 16:20:37 03/18/2023 17:45:11 Acute pharyngitis 381074644 J02.9 [id number] [facility]RIAS [address] [address] [place] [address] 03/22/2023 19:09:45 03/22/2023 20:16:11 Muscle spasm of cervical muscle of neck 1322299599 04 M62.838 Health Concerns Section Related Observation LastModified by Organization Detai ls LastModified Time None Recorded Concern Status LastModified by Organization Details LastModified Time None Recorded Advance Directives Directive None Recorded Payers Insurance Date Sequence Insurance Name Policy Number Policy Tom Covered Member ID Tom Member ID Guarantor Name 03/18/2023 1 [employer] [facility] (POS) [id number] Mami Schmidt [id number] Mami Schmidt 03/22/2023 1 [facility] TYPE I (HMO) [id number] Mami Schmidt [id number] Mami Schmidt Notes Date Note Type Note Provider Name and Address Organization Details Recorded Time 03/18/2023 text/html Sore throatRepor rohan by PatientSore ThroatFor associated symptoms, patient reportssore throatandcoughing (minimal)but reportsno sputum production,no shortness of breath,no wheezing,no sinus pain,no vomiting,no nausea, andno hoarseness. For source of patient information, patient reportsinformation obtained from patientandpatient arrived at urgent care ambulatory. For location, patient reportsthroat(both right and left. noticed white spots this am.). For severity, patient reportsmoderate. For quality, patient reportshurts to swallow. For onset/timing, patient reports5 days. For context, patient reportsno sick contacts(no recent travel.). For modifying factors, patient reportsotc medication some relief (nyquil.).Still has tonsil. No stiff neck. Not drooling. UMBERTO FRIAS [facility] [place], [address], PA - [facility] 03/18/2023 17:47:38 03/22/2023 text/html Neck UCReported by PatientHPIFor source of patient information, patient reportsinformation obtained from patientandpatient arrived at urgent care ambulatory. For location, patient reportsbilateral(left worse than right.). For quality, patient reportsaching. For severity, patient reportsno pain. For duration, patient reports1 days. For timing, patient reportsacute. For alleviating factors, patient reportsheat(took tyleno.).The patient reports that has been having intermittent chest pain in the left side as well. She states that it started in the back of the neck which is still really stiff. She cannot move her neck completely to the left side. The patient sleeps with one pillow. The patient was not doing anything rigourous yesterday no housework. The patient has had lot of back pain in the past. She states that she had a heart attack in March. The patient didn't have a stent or anything - was a non-stemi. The patient had a coronary vasospasm. The patient is not short of breath. No worsening pain with exertion. No lightheadedness or dizziness. Was seen for a sore throat 2 days ago. Throat culture was negative. UMBERTO FRIAS [address] [place], [address], PA - [facility] 03/24/2023 00:27:57 OBGyn Episode No OBEpisode recorded.
[2025-07-24 13:31] LABS: Cholesterol 197 mg/dL (<200); HDL Cholesterol 80 mg/dL (>40); Triglycerides 93 mg/dL (<150)
== END 2025-07-24 10:51 | disposition home or self-care (01) ==
LOC: HO.HKASLDS 10:50
PROVIDERS: PCP Internal Medicine; Visit Provider Internal Medicine Rheumatology
DX: M06.9 Rheumatoid arthritis, unspecified (principal)
CPT/HCPCS: 36415; 80061

== ENCOUNTER 2025-07-25 13:25 | Outpatient (AMB) | payer OTHER, SELFPAY ==
--- NOTE | 2025-07-25 13:32 | A.OFFVIS_ITS ---
Vital Signs 07/25/25 13:33 Height 5 ft 4 in Weight 125 lb 3.561 oz BMI 21.5 BP 130/90 H Blood Pressure Location Lt brachial Position Sitting Pulse 108 H Pulse Source Pulse Oximeter Pulse Oximetry (%) 100 Oxygen Delivery Method Room Air Intake Visit Reasons: 3-4 months Intake Note: Patient presents today for RA. Accompanied by: Self / Same As Patient Allergies methotex Allergy (Mild, Uncoded 02/28/25 09:24) Anaphylaxis penicillin Allergy (Unknown, Uncoded 02/28/25 09:24) Anaphylaxis sulfa Allergy (Unknown, Uncoded 02/28/25 09:24) Anaphylaxis HPI HPI 3-4 months: Details: Prednisone helped her shoulder pain. Prednisone had no effect with her foot pain. She continues to have swelling of her right foot. Morning stiffness is 30 minutes. No recent infections. 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 Good respiratory effort Skin: No lesions seen MSK: Tender to palpate bilateral MCPs and left PIPs. Normal range of motion of upper extremities and lower extremities. Tender bilateral MTPs with right MTP synovitis present. Office Meds methylprednisolone acetate 80 mg/mL suspension for injection Performing Provider: Sage White MD Performing Location: [facility] Administered by: Mariposa Coppola RN on 07/25/25 14:05 Dose Route Admin Location Dispensed Lot Number Expiration Date [facility] Cryptological Technician 80 mg IM left upper arm 1 mL [id number] 09/20/26 [address]-5 AM MEGAN CRUZ Total Dispensed Waste 1 mL 0 % Assessment & Plan Assessment & Plan (1) Rheumatoid arthritis: Comment: Uncontrolled. She continues to have right MTP synovitis without benefit with prednisone course. Lipid panel is normal 07/24/2025. After baseline labs are reviewed, I will process PA for Actemra. 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 Failed NSAIDs meloxicam and naproxen initially for treatment of palindromic rheumatism. Hydroxychloroquine caused a trunk rash and aggression. Mouth sores on methotrexate 7.5 mg once weekly with folic acid. Enbrel caused drug rash with hives that lasted 2 months. Humira caused rash with hives. Reaction to Cimzia where she locked up the InStent she gave herself the subcutaneous injection and could not move afterwards. Remicade induction dose March 2021 1st dose caused abdominal pain, loose stools, ear popping, rhinorrhea. She then developed ear infection and thrush. She had no future reaction or infection after 2nd induction dose without pretreatment. 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 She was on leflunomide 01/2023-01/2024. Recurrent URIs with combination Xeljanz and leflunomide leading to discontinuation January 2025. Prednisone >than 20 mg q.day causes aggression. Code(s): M06.9 - Rheumatoid arthritis, unspecified Category: Medical Plan: Depo-Medrol 80 mg IM After lab results is back, I will process PA for Actemra 162mg subcutaneous injection. Once Actemra is approved, she will need nurse teaching visit for 1st dose administration. She will also need labs 1 month after starting Actemra with fasting lipid panel, CBC, ANC, creatinine, AST, ALT, ESR, CRP. Return to clinic in 3 months Orders: Orders Complete Blood Count Auto Diff Today Z79.899 - Other terminal carman (current) drug therapy Aspartate Amino Transferase Today Z79.899 - Other terminal carman (current) drug therapy C Reactive Protein Today Z79.899 - Other terminal carman (current) drug therapy Alanine Aminotransferase Today Z79.899 - Other group home (current) drug therapy Creatinine Today Z79.899 - Other group home (current) drug therapy Erythrocyte Sedimentation Rate Today Z79.899 - Other group home (current) drug therapy AMB Methylprednisolone Acetate Injection Today M06.9 - Rheumatoid arthritis, unspecified Coding Level of Care Code Est Pt Level 4 (44238) Complex EM visit Add On G2211 Diagnoses Rheumatoid arthritis M06.9
[2025-07-25 13:33] VITALS: BP 130/90; PULSE 108; O2SAT 100; BMI 21.5
--- OUTSIDE RECORDS SUMMARY | 2025-07-25 16:28 | XMS_ITS | Clinical Summary ---
Author Organization [facility] Address [address] [place] [address] Phone Care Team Providers Care Chopper Feeder Name Role Phone Gordon Johns MD Primary [...] ALKALINE PHOSPHATASE 38(L) 39 - 117 U/L [facility] TOTAL BILIRUBIN 0.4 0.0 - 1.2 mg/dL [facility] DIRECT BILIRUBIN <0.2 0 - 0.3 mg/dL [facility] Bilirubin (Indirect) NOT CALCULATED 0 - 1.5 mg/dL [facility] AST 20 0 - 37 U/L [facility] ALT 13 0 - 40 U/L [facility] TOTAL PROTEIN 7.0 6.5 - 8.0 g/dL [facility] ALBUMIN 4.6 3.9 - 4.8 g/dL [facility] GLOBULIN 2.4 1 - 4.8 g/dL [facility] A/G Ratio 1.92 1.00 - 4.80 RATIO [facility] Blood 06/23/2020 12:4 4 PM EDT 06/23/2020 12:45 PM EDT us Apolinar Lynn PA LAB BLOOD BKR ORDERABLE S Final Result Performing Organization Address City/State/[facility] Co de Phone Number [address] [address] * (ABNORMAL) Comprehensive metabolic panel (04/23/2020 1:35 PM EDT) SODIUM 137 133 - 146 mmol/L [facility] POTASSIUM 4.2 3.3 - 5.1 mmol/L [facility] CHLORIDE 103 96 - 108 mmol/L [facility] CO2 26 21 - 35 mmol/L [facility] BUN 7 6 - 19 mg/dL [facility] CREATININE 0.60 0.5 - 1.5 mg/dL [facility] GLUCOSE 91 70 - 99 mg/dL [facility] ALBUMIN 4.3 3.9 - 4.8 g/dL [facility] TOTAL PROTEIN 6.4(L) 6.5 - 8.0 g/dL [facility] CALCIUM 8.7 8.4 - 10.3 mg/dL [facility] ALKALINE PHOSPHATASE 32(L) 39 - 117 U/L [facility] TOTAL BILIRUBIN 0.3 0.0 - 1.2 mg/dL [facility] AST 22 0 - 37 U/L [facility] ALT 12 0 - 40 U/L [facility] GLOBULIN 2.1 1 - 4.8 g/dL [facility] EGFR >120 >59 mL/min/1.7 3m2 [facility] Comment:Estimated glomerular filtration rate calculated using the CKD-EPI equation. ANION GAP 12 10 - 20 mmol/L [facility] Blood 04/23/2020 1:35 PM EDT 04/23/2020 1:36 PM EDT us Apolinar SHIPMAN LAB BLOOD BKR ORDERABLE S Final Result [facility] [address] [place] [address] from Last 3 Months or Most Recently Relevant to Health Maintenance [place] [address] [address] [employer] [facility] [employer] DIRECT [employer] DIRECT [employer] [place] [address] [place] [address] [place] [address] [place] [address] [employer] [address] [place] [address] [employer] DIRECT Care Teams Chopper Feeder Relationship Specialty Start Date End Date Gordon Johns MD [address] [place] [address] [address] [place] [phone] PCP - General Internal Medicine 05/03/19 Additional Source Comments The information contained in this document represents components of the legal health record. It is not the complete legal health record.[facility]
--- OUTSIDE RECORDS SUMMARY | 2025-07-25 16:28 | XMS_ITS | Clinical Summary ---
Author Organization [facility] Address [address] [place] [address] Phone Care Team Providers Care Paraoptometric Name Role Phone Unavailable Primary Care Provider [...]
--- OUTSIDE RECORDS SUMMARY | 2025-07-25 16:28 | XMS_ITS | Encounter Summary ---
Author Organization [facility] Address [address] [place] [address] Phone Care Team Providers Care Well Logger Name Role Phone Richa Reyes MD Primary Care Provider Encounter Details Date Type Department Care Team (Late st Contact Info) Description 05/07/2017 Conversion Encounter [facility] [place] [address] [place] [address] Social History Tobacco Use Types Packs/Day Years [...] on filedocumented in this encounter Care Teams Well Logger Relationship Specialty Start Date End Date Richa Reyes MD [address] [place] [address] PCP - General 05/01/17 12/21/22 documented as of this encounter
== END 2025-07-25 14:03 | disposition home or self-care (01) ==
LOC: HO.RHES 13:26
PROVIDERS: PCP Internal Medicine; Visit Provider Internal Medicine Rheumatology
DX: M06.9 Rheumatoid arthritis, unspecified (principal)
CPT/HCPCS: 99214

== ENCOUNTER → 2025-07-25 13:25 | Outpatient (BNVA) | payer OTHER, SELFPAY | PROVIDERS: PCP Internal Medicine; Visit Provider Internal Medicine Rheumatology | DX: M06.9 Rheumatoid arthritis, unspecified (principal); Z79.52 Long term (current) use of systemic steroids | CPT/HCPCS: 96372; 99212; J1010 ==

== ENCOUNTER 2025-07-28 14:44 | Outpatient (REF) | payer OTHER, SELFPAY ==
--- OUTSIDE RECORDS SUMMARY | 2025-07-28 16:12 | XMS_ITS | Encounter Summary ---
Author Organization [facility] Address [address] [place] [address] Care Team Providers Care Manager Wholesale Name Role Phone Uche Iglesias DO Primary Care Provider Unav ailable Umesh Zuniga MD Unavailable [phone] Flower Hummel PA-C Primary Care Provider Un available Mary Sharma CONCRETE BUCKET UNLOADER Unavailable [phone] Johana Mauricio CONCRETE BUCKET UNLOADER Unavailable [phone] Encounter Details Date Type Department Care Team Description 09/29/2019 Release of Information Medical Records [address] [place] [id number] Abstract, Provider Social History Tobacco Use Types [...] on filedocumented in this encounter Care Teams Manager Wholesale Relationship Specialty Start Date End Date Uche Iglesias DO PCP - General Internal Medicine 06/29/18 10/14/22 Flower Hummel PA-C [address] [place] [address] [address] [place] [address] PCP - General Internal Medicine 10/15/22 Umesh Zuniga MD [address] [place] [address] [place] [address] [phone] Human Resources Compliance Manager Cardiovascular Disease 08/29/22 Mary Sharma, CONCRETE BUCKET UNLOADER [address] [place] [address] [address] [place] [address] Nurse Practitioner Cardiology 06/10/23 12/17/23 Johana Mauricio, HAILEY [address] [place] [address] [facility] [place] [address] Nurse Practitioner Cardiology 07/01/23 documented as of this encounter
--- OUTSIDE RECORDS SUMMARY | 2025-07-28 16:12 | XMS_ITS | Encounter Summary ---
Author Organization [facility] Address [address] [place] [address] Care Team Providers Care Mailroom Courier Name Role Phone Uche Iglesias DO Primary Care Provider Unav ailable Umesh Zuniga MD Unavailable [phone] Flower Hummel PA-C Primary Care Provider Un available Mary Sharma PET AMBASSADOR Unavailable [phone] Johana Mauricio PET AMBASSADOR Unavailable [phone] Encounter Details Date Type Department Care Team Description 04/07/2019 SCAN Medical Records [address] [place] [address] Abstract, Provider Social History Tobacco Use Types Packs/Day Years Used Date Smoking Tobacco: Every Day Cigarettes 1 Smokeless Tobacco: Former Sex Assigned at Date Recorded Not on file documented as of this encounter Plan of Treatment Not on file documented as of this encounter Procedures Procedure Name Priority Date/Time Associated Diagnosis Comments OUTSIDE CT Routine 04/07/2019 documented in this encounter Results * OUTSIDE CT (04/07/2019) Provider Abstract RADIOLOGY documented in this encounter Visit Diagnoses Not on filedocumented in this encounter Care Teams Mailroom Courier Relationship Specialty Start Date End Date Uche Iglesias DO PCP - General Internal Medicine 06/29/18 10/14/22 Flower Hummel PA-C [address] [place] [address] [place] [address] PCP - General Internal Medicine 10/15/22 Umesh Zuniga MD [address] [place] [address] [address] [place] [address] Grab Jack Man Cardiovascular Disease 08/29/22 Mary Sharma NP [address] [place] [address] [address] [place] [address] Nurse Practitioner Cardiology 06/10/23 12/17/23 Johana Mauricio NP [address] [place] [address] [facility] [place] [address] Nurse Practitioner Cardiology 07/01/23 documented as of this encounter
--- OUTSIDE RECORDS SUMMARY | 2025-07-28 16:12 | XMS_ITS | Encounter Summary ---
Author Organization [facility] Address [address] [place] [address] Care Team Providers Care Industrial Design Intern Name Role Phone Uche Iglesias DO Primary Care Provider Unav Umesh Evangelista MD Unavailable [phone] Flower Hummel PA-C Primary Care Provider Un available Mary Sharma WEB PRODUCER Unavailable [phone] Johana Mauricio WEB PRODUCER Unavailable [phone] Encounter Details Date Type Department Care Team Description 04/02/2022 Hospital Medical Records [address] [place] [address] Social History Tobacco Use Types Packs/Day Years Used Date Smoking Tobacco: Every Day Cigarettes 0.5 Smokeless Tobacco: Never Comments:Smokes helf pack da vincent Alcohol Use Standard Drinks/Week Comments Yes 0 (1 standard drink = 0.6 oz pur e alcohol) on weekends Sex Assigned at Date Recorded Not on file documented as of this encounter Plan of Treatment Not on file documented as of this encounter Procedures Procedure Name Priority Date/Time Associated Diagnosis Comments OUTSIDE CT Routine 04/02/2022 documented in this encounter Results * OUTSIDE CT (04/02/2022) Provider Abstract RADIOLOGY documented in this encounter Visit Diagnoses Not on filedocumented in this encounter Care Teams Industrial Design Intern Relationship Specialty Start Date End Date Uche Iglesias DO PCP - General Internal Medicine 06/29/18 10/14/22 Flower Hummel PA-C [address] [place] [address] [address] [place] [address] PCP - General Internal Medicine 10/15/22 Umesh Zuniga MD [address] [place] [address] [address] [place] [address] Roller Shop Supervisor Cardiovascular Disease 08/29/22 Mary Sahrma NP [address] [place] [address] [address] [place] [address] Nurse Practitioner Cardiology 06/10/23 12/17/23 Johana Mauricio NP [address] [place] [address] [facility] [place] [address] Nurse Practitioner Cardiology 07/01/23 documented as of this encounter
--- OUTSIDE RECORDS SUMMARY | 2025-07-28 16:12 | XMS_ITS | Encounter Summary ---
Author Organization [facility] Address [address] [place] [address] Care Team Providers Care Men'S Basketball Coach Name Role Phone Umesh Zuniga MD Unavailable [phone] Flower Hummel PA-C Primary Care Provider Un available Johana Mauricio NP Unavailable [phone] Reason for Visit * Reason Onset Date Comments Testing 12/30/[address] A Encounter Details Date Type Department Care Team Description 12/30/2023 Telephone Cardio PVC POC [address] [place] [address] Johana Mauricio NP [address] [place] [address] [facility] [place] [address] Testing (Auth Coronary CTA) Social History Tobacco Use Types Packs/Day Years Used Date Smoking Tobacco: Every Day Cigarettes 0.5 Smokeless Tobacco: Never Comments:Smokes helf pack da vincent Alcohol Use Standard Drinks/Week Comments Yes 0 (1 standard drink = 0.6 oz pur e alcohol) on weekends Sex Assigned at Date Recorded Not on file documented as of this encounter Miscellaneous Notes * Telephone Encounter - Johana Mauricio NP - 01/07/2024 11:41 AM EDT Patient was called by testing for STEC, she declined at this time. * Telephone Encounter - Tequila Curtis - 12/30/2023 12:00 PM EDT Please get a [facility] auth for a Coronary CTA ([id number]), Chest pain (R07.9), [place] [place] in this encounter Plan of Treatment Not on file documented as of this encounter Visit Diagnoses Not on filedocumented in this encounter Care Teams Men'S Basketball Coach Relationship Specialty Start Date End Date Flower Hummel PA-C [address] [place] [address] [address] [place] [address] PCP - General Internal Medicine 10/15/22 Umesh Zuniga MD [address] [place] [address] [address] [place] [address] Cost And Sales Record Supervisor Cardiovascular Disease 08/29/22 Johana Mauricio NP [address] [place] [address] [facility] [place] [address] Nurse Practitioner Cardiology 07/01/23 documented as of this encounter
--- OUTSIDE RECORDS SUMMARY | 2025-07-28 16:12 | XMS_ITS | Encounter Summary ---
Author Organization [facility] Address [address] [place] [address] Phone Care Team Providers Care Lamp Developer Name Role Phone Richa Reyes MD Primary Care Provider Encounter Details Date Type Department Care Team (Late st Contact Info) Description 05/07/2017 Conversion Encounter [facility] [place] [address] [place] [address] Social History Tobacco Use Types Packs/Day Years [...] on filedocumented in this encounter Care Teams Lamp Developer Relationship Specialty Start Date End Date Richa Reyes MD [address] [place] [address] PCP - General 05/01/17 12/21/22 documented as of this encounter
--- OUTSIDE RECORDS SUMMARY | 2025-07-28 16:12 | XMS_ITS | Encounter Summary ---
Author Organization [facility] Address [address] [place] [address] Care Team Providers Care Sales Manager Name Role Phone Uche Iglesias DO Primary Care Provider Unav Umesh Evangelista MD Unavailable [phone] Flower Hummel PA-C Primary Care Provider Un available Mary Sharma NP Unavailable [phone] Johana Mauricio NP Unavailable [phone] Encounter Details Date Type Department Care Team Description 05/17/2019 Orders Only General Surgery [address] [place] [address] Leisa Sheridan NP BRCA2 gene mutation positive; At high risk for breast cancer Social History Tobacco Use Types Packs/Day Years Used Date Smoking Tobacco: Every Day Cigarettes 1 Smokeless Tobacco: Former Sex Assigned at Date Recorded Not on file documented as of this encounter Plan of Treatment Not on file documented as of this encounter Procedures Procedure Name Priority Date/Time Associated Diagnosis Comments CHG MRI BREAST WITHOUT&WITH CONTRAST W/CAD BILATERAL Routine 04/25/2019 BRCA2 gene mutation positive At high risk for breast cancer documented in this encounter Results * MRI BREAST W/WO CONTRAST W/CAD BILATERAL (04/25/2019) Leisa Sheridan NP MRI documented in this encounter Visit Diagnoses Diagnosis BRCA2 gene mutation positive At high risk for breast cancer documented in this encounter Care Teams Sales Manager Relationship Specialty Start Date End Date Uche Iglesias DO PCP - General Internal Medicine 06/29/18 10/14/22 Flower Hummel PA-C [address] [place] [address] [address] [place] [address] PCP - General Internal Medicine 10/15/22 Umesh Zuniga MD [address] [place] [address] [address] [place] [address] Sales And Service Engineer Cardiovascular Disease 08/29/22 Mary Sharma NP [address] [place] [address] [address] [place] [address] Nurse Practitioner Cardiology 06/10/23 12/17/23 Johana Mauricio NP [address] [place] [address] [facility] [place] [address] Nurse Practitioner Cardiology 07/01/23 documented as of this encounter
--- OUTSIDE RECORDS SUMMARY | 2025-07-28 16:12 | XMS_ITS | Encounter Summary ---
Author Organization [facility] Address [address] [place] [address] Care Team Providers Care Coil Tier Name Role Phone Uche Iglesias DO Primary Care Provider Umesh Marcano MD Unavailable [phone] Flower Hummel PA-C Primary Care Provider Un available Mary Sharma REAL ESTATE COORDINATOR Unavailable [phone] Johana Mauricio REAL ESTATE COORDINATOR Unavailable [phone] Encounter Details Date Type Department Care Team Description 05/30/2022 SCAN Medical Records [address] [place] [address] Abstract, Provider Social History Tobacco Use Types [...] on filedocumented in this encounter Care Teams Coil Tier Relationship Specialty Start Date End Date Uche Iglesias DO PCP - General Internal Medicine 06/29/18 10/14/22 Flower Hummel PA-C [address] [place] [address] [address] [place] [address] PCP - General Internal Medicine 10/15/22 Umesh Zuniga MD [address] [place] [address] [address] [place] [address] Dragline Operator Helper Cardiovascular Disease 08/29/22 Mary Sharma NP [address] [place] [address] [address] [place] [address] Nurse Practitioner Cardiology 06/10/23 12/17/23 Johana Mauricio NP [address] [place] [address] [facility] [place] [address] Nurse Practitioner Cardiology 07/01/23 documented as of this encounter
--- OUTSIDE RECORDS SUMMARY | 2025-07-28 16:12 | XMS_ITS | Clinical Summary ---
Author Organization [facility] Address [address] [place] [address] Phone Care Team Providers Care Real Estate Office Supervisor Name Role Phone Unavailable Primary Care Provider [...]
--- OUTSIDE RECORDS SUMMARY | 2025-07-28 16:12 | XMS_ITS | Encounter Summary ---
Author Organization [facility] Address [address] [place] [address] Care Team Providers Care Estimator And Drafter Supervisor Name Role Phone Umesh Zuniga MD Unavailable [phone] Flower Hummel PA-C Primary Care Provider Un available Mary Sharma NP Unavailable [phone] Johana Mauricio NP Unavailable [phone] Encounter Details Date Type Department Care Team Description 10/14/2023 Release of Information Medical Records [address] [place] [address] [facility] Social History Tobacco Use Types Packs/Day Years Used Date Smoking Tobacco: Every Day Cigarettes 0.5 Smokeless Tobacco: Never Alcohol Use Standard Drinks/Week Comments Yes 0 (1 standard drink = 0.6 oz pur e alcohol) on weekends Sex Assigned at Date Recorded Not on file documented as of this encounter Plan of Treatment Not on file documented as of this encounter Visit Diagnoses Not on filedocumented in this encounter Care Teams Estimator And Drafter Supervisor Relationship Specialty Start Date End Date Flower Hummel PA-C [address] [place] [address] [place] [address] PCP - General Internal Medicine 10/15/22 Umesh Zuniga MD [address] [place] [address] [place] [phone] Hitch Technician Cardiovascular Disease 08/29/22 Mary Sharma NP [address] [place] [address] [place] [address] [phone] Nurse Practitioner Cardiology 06/10/23 12/17/23 Johana Mauricio NP [address] [place] [address] [facility] [place] [address] Nurse Practitioner Cardiology 07/01/23 documented as of this encounter
--- OUTSIDE RECORDS SUMMARY | 2025-07-28 16:12 | XMS_ITS | Encounter Summary ---
Author Organization [facility] Address [address] [place] [address] Care Team Providers Care Shirt Presser Name Role Phone Uche Iglesias DO Primary Care Provider Unav ailable Umesh Zuniga MD Unavailable [phone] Flower Hummel PA-C Primary Care Provider Un available Mary Sharma NP Unavailable Johana Mauricio NP Unavailable [phone] Encounter Details Date Type Department Care Team Description 05/20/2019 Orders Only General Surgery [address] [place] [address] Leisa Sheridan NP BRCA2 gene mutation positive (Primary Dx) Social History Tobacco Use Types Packs/Day Years Used Date Smoking Tobacco: Every Day Cigarettes 1 Smokeless Tobacco: Former Sex Assigned at Date Recorded Not on file documented as of this encounter Plan of Treatment Not on file documented as of this encounter Visit Diagnoses Diagnosis BRCA2 gene mutation positive- Primary documented in this encounter Care Teams Shirt Presser Relationship Specialty Start Date End Date Uche Iglesias DO PCP - General Internal Medicine 06/29/18 10/14/22 Flower Hummel PA-C [address] [place] [address] [place] [address] PCP - General Internal Medicine 10/15/22 Umesh Zuniga MD [address] [place] [address] [address] [place] [address] Financial Sales Consultant Cardiovascular Disease 08/29/22 Mary Sharma NP [address] [place] [address] [address] [place] [address] Nurse Practitioner Cardiology 06/10/23 12/17/23 Johana Mauricio, HAILEY [address] [place] [address] [facility] [place] [address] Nurse Practitioner Cardiology 07/01/23 documented as of this encounter
--- OUTSIDE RECORDS SUMMARY | 2025-07-28 16:12 | XMS_ITS | Data Portability ---
Author Organization [facility] Address [address] [place] [address] Care Team Providers Care Wrinkle Chaser Name Role Phone MALLORY NDIAYE Primary Care Provider Assessment No assessment recorded. Plan of Treatment Reminders Order Date Submit Date Provider Last Modified By Organization Details Last Modified Time Details Appointments None recorded. Lab rapid strep group A, throat 2022 023 [email or web address] [facility], [address] [place] [address], [id number], 17:43:42 culture, respiratory 2022 023 [facility], [address] [place] [address], [place], [address], 3 12:05:50 Referral None recorded. Procedures None recorded. Surgeries None recorded. Imaging None recorded. Medication Orders cyclobenzap rine [address] [facility]1972, [address] [place], [address], 3 08:06:36 meloxicam 7.[address] [facility]1972, [address] [place], [address], 3 08:06:36 Patient TargetsNo targets recorded. Patient Instructions Encounter Date Encounter Id Patient Instructions Last Modified By Organization Details Last Modified Time 03/18/2023 [id number] sore throat: car e instructions [email or web address] Not available 03/18/2023 17:43:41 Based on your [...] 6. Severe Headache Thank you for using [facility] today, please feel free to contact our office if you have any questions or concerns. Not available 03/18/2023 17:43:39 03/22/2023 [id number] neck spasm: exercises [email or web address] Not available 03/24/2023 00:27:55 neck spasm: care instructions [email or web address] Not available 03/24/2023 00:27:55 You are being [...] or Dizziness.light headedness Thank you for using [facility]. Please feel free to contact us if you have any questions or concerns. [email or web address] Not available 03/22/2023 20:14:48 Reason for Referral None Reported. Results Created Date Observation Date Name Description Value Unit Range Abnormal Flag Note LastModifiedBy Organization Detail LastModifiedTime 03/18/20 23 03/22/2023 UPPER RESPI RATOR Y CULTU RE upper respiratory culture FINAL REPORT Not Available [facility] ([facility]) [address] [place], [address], 03/22/2023 12:05:50 03/18/20 23 03/22/2023 UPPER RESPI RATOR Y CULTU RE result 1 COMMEN T Routi ne respi rator y dinora Not Available [facility] ([facility]) [address] [place], [address], 03/22/2023 12:05:50 03/18/20 23 03/18/2023 rapid strep group A, throa t Unknown Analyte Normal = Negati ve Not Available [id number] [facility], [place], [address], 03/18/2023 17:16:20 03/18/20 23 03/18/2023 rapid strep group A, throa t Unknown Analyte negati ve Not Available [id number] [place] [address], [place], [address], 03/18/2023 17:16:20 Result Notes None recorded. Problems Name Problem SNOMED Code Status Onset Date Resolution Date Notes Provider Name and Address Organization Details Recorded Time Myocardial infarction 82709507 Completed 202103/21/2022 DARRON georges PA - [facility] 19:35:44 Rheumatoid arthritis 68584573 Active 2022 LELO georges [facility] - [facility] [...] Name and Address Organization Details Recorded Time 518836 Substance with sulfonami de structure and antibacte rial mechanism of action (substanc e) medicatio n Not available Not available Not available 03/18/2023 29497 8003 SNOMED LELO georges PA - [facility] 17:10:51 337772 Product containin g penicilli n (product) medicatio n Not available Not available Not available 03/18/2023 47163 8001 SNOMED LELO georges, PA - [facility] [...] Updated DateTime 3 157.48 cm 20.1 kg/m2 42658.1 6 g 98 % 98 % 72 /min 18 /min 98.2 [degF] 132/88 mm[Hg] LELO KNOTT PA - [facility] 3 17:15:41 Date Recorded Body height Body mass index (BMI) Body weight Pain severity - 0-10 verbal numeric rating [Score] - Reported Oxygen saturation Oxygen saturation in Arterial blood by Pulse oximetry Heart rate Respiratory rate Body temperature Systolic And Diastolic Provider Name and Address Organization Details Last Updated DateTime 3 157.48 cm 20.1 kg/m2 04628.1 6 g 9 97 % 97 % 94 /min 16 /min 98.2 [degF] 126/78 mm[Hg] DARRON COPPOLA PA - [facility] 3 19:38:45 Social History Question Answer [...] ICD10 Code Diagnosis IMO Codes Diagnosis Note [id number] [facility] [address] [place] [address] 03/18/2023 16:20:37 03/18/2023 17:45:11 Acute pharyngitis 894197541 J02.9 [id number] [facility] [address] [place] [address] 03/22/2023 19:09:45 03/22/2023 20:16:11 Muscle spasm of cervical muscle of neck 6361689621 04 M62.838 Health Concerns Section Related Observation LastModified by Organization Detai ls LastModified Time None Recorded Concern Status LastModified by Organization Details LastModified Time None Recorded Advance Directives Directive None Recorded Payers Insurance Date Sequence Insurance Name Policy Number Policy Tom Covered Member ID Tom Member ID Guarantor Name 03/18/2023 1 [facility] (POS) [id number] Mami E Foucher [id number] Mami Foucher 03/22/2023 1 [facility] - DIRECT [facility] TYPE I (HMO) [id number] Mami E Foucher [id number] Mami Foucher Notes Date Note Type Note Provider Name [...] No stiff neck. Not drooling. [facility] FRIAS [address] [place], [address], [facility] 03/18/2023 17:47:38 03/22/2023 text/html Neck UCReported by [...] Throat culture was negative. [facility]O FRIAS [address] [place], [address], [facility] 03/24/2023 00:27:57 OBGyn Episode No OBEpisode recorded.
--- OUTSIDE RECORDS SUMMARY | 2025-07-28 16:12 | XMS_ITS | Encounter Summary ---
Author Organization [facility] Address [address] [place] [address] Care Team Providers Care Medical Administrative Technician Name Role Phone Uche Iglesias DO Primary Care Provider Unav ailable Umesh Zuniga MD Unavailable [phone] Flower Hummel PA-C Primary Care Provider Un available Mary Sharma NP Unavailable [phone] Johana Mauricio NP Unavailable [phone] Encounter Details Date Type Department Care Team Description 05/20/2019 Telephone General Surgery [address] [place] [address] Leisa Sheridan NP Social History Tobacco Use Types Packs/Day Years Used Date Smoking Tobacco: Every Day Cigarettes 1 Smokeless Tobacco: Former Sex Assigned at Date Recorded Not on file documented as of this encounter Plan of Treatment Not on file documented as of this encounter Visit Diagnoses Not on filedocumented in this encounter Care Teams Medical Administrative Technician Relationship Specialty Start Date End Date Uche Iglesias DO PCP - General Internal Medicine 06/29/18 10/14/22 Flower Hummel PA-C [address] [place] [address] [place] [address] PCP - General Internal Medicine 10/15/22 Umesh Zuniga MD [address] [place] [address] [place] [address] [phone] Construction Operations Manager Cardiovascular Disease 08/29/22 Mary Sharma NP [address] [place] [address] [place] [address] Nurse Practitioner Cardiology 06/10/23 12/17/23 Johana Mauricio NP [address] [place] [address] [facility] [place] [address] Nurse Practitioner Cardiology 07/01/23 documented as of this encounter
--- OUTSIDE RECORDS SUMMARY | 2025-07-28 16:12 | XMS_ITS | Encounter Summary ---
Author Organization [facility] Address [address] [place] [address] Care Team Providers Care Cloth Tearer Name Role Phone cUhe Iglesias DO Primary Care Provider Umesh Marcano MD Unavailable [phone] Flower Hummel PA-C Primary Care Provider Un available Mary Sharma NP Unavailable [phone] Johana Mauricio NP Unavailable [phone] Encounter Details Date Type Department Care Team Description 01/31/2019 Orders Only General Surgery [address] [place] [address] Leisa Sheridan NP BRCA2 gene mutation positive; At high risk for breast cancer Social History Tobacco Use Types Packs/Day Years Used Date Smoking Tobacco: Every Day Cigarettes 1 Smokeless Tobacco: Former Sex Assigned at Date Recorded Not on file documented as of this encounter Plan of Treatment Not on file documented as of this encounter Procedures Procedure Name Priority Date/Time Associated Diagnosis Comments SCR MAMMO BI INCL CAD Routine 12/22/2018 BRCA2 gene mutation positive At high risk for breast cancer documented in this encounter Results * SCR MAMMO BI INCL CAD (12/22/2018) Leisa Sheridan NP MAMMOGRAPHY documented in this encounter Visit Diagnoses Diagnosis BRCA2 gene mutation positive At high risk for breast cancer documented in this encounter Care Teams Cloth Tearer Relationship Specialty Start Date End Date Uche Iglesias DO PCP - General Internal Medicine 06/29/18 10/14/22 Flower Hummel PA-C [address] [place] [address] [address] [place] [address] PCP - General Internal Medicine 10/15/22 Umesh Zuniga MD [address] [place] [address] [address] [place] [address] Idea Worker Cardiovascular Disease 08/29/22 Mary Sharma NP [address] [place] [address] [address] [place] [address] Nurse Practitioner Cardiology 06/10/23 12/17/23 Johana Mauricio NP [address] [place] [address] [facility] [place] [address] Nurse Practitioner Cardiology 07/01/23 documented as of this encounter
--- OUTSIDE RECORDS SUMMARY | 2025-07-28 16:13 | XMS_ITS | Encounter Summary ---
Author Organization [facility] Address [address] [place] [address] Care Team Providers Care Vegetable Tester Name Role Phone Umesh Zuniga MD Unavailable [phone] Flower Hummel PA-C Primary Care Provider Un available Mary Sharma MASONRY INSPECTOR Unavailable [phone] Johana Mauricio MASONRY INSPECTOR Unavailable [phone] Encounter Details Date Type Department Care Team Description 01/01/2023 SCAN Medical Records [address] [place] [address] Fidencio Hawkins Social History Tobacco Use Types Packs/Day Years Used Date Smoking Tobacco: Every Day Cigarettes 0.5 Smokeless Tobacco: Never Alcohol Use Standard Drinks/Week Comments Yes 0 (1 standard drink = 0.6 oz pur e alcohol) on weekends Sex Assigned at Date Recorded Not on file COVID-19 Exposure Response Date Recorded In the last 10 days, have yo u been in contact with someone who was confirmed or suspected to have Coronavirus/COVID-19? No / Unsure 12/02/2022 10:47 AM EDT documented as of this encounter Plan of Treatment Not on file documented as of this encounter Procedures Procedure Name Priority Date/Time Associated Diagnosis Comments OUTSIDE LAB Routine 01/01/2023 documented in this encounter Results * OUTSIDE LAB (01/01/2023) Provider Default LAB documented in this encounter Visit Diagnoses Not on filedocumented in this encounter Care Teams Vegetable Tester Relationship Specialty Start Date End Date Flower Hummel PA-C [address] [place] [address] [address] [place] [address] PCP - General Internal Medicine 10/15/22 Umesh Zuniga MD [address] [place] [address] [address] [place] [address] Biomedical Analytical Scientist Cardiovascular Disease 08/29/22 Mary Sharma NP [address] [place] [address] [address] [place] [address] Nurse Practitioner Cardiology 06/10/23 12/17/23 Johana Mauricio NP [address] [place] [address] [facility] [place] [address] Nurse Practitioner Cardiology 07/01/23 documented as of this encounter
--- OUTSIDE RECORDS SUMMARY | 2025-07-28 16:13 | XMS_ITS | Clinical Summary ---
Author Organization [facility] Address [address] [place] [phone] Phone Care Team Providers Care Absorption Plant Operator Name Role Phone Gordon Johns MD [...] VACCINE (#1) 2025 HIB VACCINES Completed 06/20/1990 IPV VACCINES Completed 06/20/1999, 03/23, 02/18/1999, Additional history exists HEPATITIS A VACCINES Aged Out No long [...] ALKALINE PHOSPHATASE 38(L) 39 - 117 U/L [facility] TOTAL BILIRUBIN 0.4 0.0 - 1.2 mg/dL [facility] DIRECT BILIRUBIN <0.2 0 - 0.3 mg/dL [facility] Bilirubin (Indirect) NOT CALCULATED 0 - 1.5 mg/dL [facility] AST 20 0 - 37 U/L [facility] ALT 13 0 - 40 U/L [facility] TOTAL PROTEIN 7.0 6.5 - 8.0 g/dL [facility] ALBUMIN 4.6 3.9 - 4.8 g/dL [facility] GLOBULIN 2.4 1 - 4.8 g/dL [facility] A/G Ratio 1.92 1.00 - 4.80 RATIO [facility] Blood 06/23/2020 12:4 4 PM EDT 06/23/2020 12:45 PM EDT [facility] BLOOD BKR ORDERABLE S Final Result [facility] [address] [place] [address] * (ABNORMAL) Comprehensive metabolic panel (04/23/2020 1:35 PM EDT) SODIUM 137 133 - 146 mmol/L [facility] POTASSIUM 4.2 3.3 - 5.1 mmol/L [facility] CHLORIDE 103 96 - 108 mmol/L [facility] CO2 26 21 - 35 mmol/L [facility] BUN 7 6 - 19 mg/dL [facility] CREATININE 0.60 0.5 - 1.5 mg/dL [facility] GLUCOSE 91 70 - 99 mg/dL [facility] ALBUMIN 4.3 3.9 - 4.8 g/dL [facility] TOTAL PROTEIN 6.4(L) 6.5 - 8.0 g/dL [facility] CALCIUM 8.7 8.4 - 10.3 mg/dL [facility] ALKALINE PHOSPHATASE 32(L) 39 - 117 U/L [facility] TOTAL BILIRUBIN 0.3 0.0 - 1.2 mg/dL [facility] AST 22 0 - 37 U/L [facility] ALT 12 0 - 40 U/L [facility] GLOBULIN 2.1 1 - 4.8 g/dL [facility] EGFR >120 >59 mL/min/1.7 3m2 [facility] Comment:Estimated glomerular filtration rate calculated using the CKD-EPI equation. ANION GAP 12 10 - 20 mmol/L [facility] Blood 04/23/2020 1:35 PM EDT 04/23/2020 1:36 PM EDT us [facility] BLOOD BKR ORDERABLE S Final Result [address] [address] from Last 3 Months or Most Recently Relevant to Health Maintenance Insurance [facility] [employer] [facility] Fe3 MedicalORCARE DIRECT [facility] [employer] DIRECT [employer] DIRECT [employer] [place] [address] [place] [address] [employer] DIRECT [employer] [place] [address] [place] [address] [employer] DIRECT [facility] DIRECT Care Teams Absorption Plant Operator Relationship Specialty Start Date End Date Gordon Johns MD [address] [place] [address] [address] [place] [address] PCP - General Internal Medicine 05/03/19 Additional Source Comments The information contained in this document represents components of the legal health record. It is not the complete legal health record.[facility]ly [facility]
--- OUTSIDE RECORDS SUMMARY | 2025-07-28 16:13 | XMS_ITS | Encounter Summary ---
Author Organization [facility] Address [address] [place] [address] Care Team Providers Care Director Strategic Planning Name Role Phone Umesh Zuniga MD Unavailable [phone] Flower Hummel PA-C Primary Care Provider Un available Mary Sharma INDUSTRIAL SALES ENGINEER Unavailable [phone] Johana Mauricio INDUSTRIAL SALES ENGINEER Unavailable [phone] Encounter Details Date Type Department Care Team Description 10/20/2022 SCAN Medical Records [address] [place] [address] Fidencio Hawkins Social History Tobacco Use Types Packs/Day Years Used Date Smoking Tobacco: Every Day Cigarettes 1 Smokeless Tobacco: Never Comments:Less than 1 ppd Alcohol Use Standard Drinks/Week Comments Yes 0 (1 standard drink = 0.6 oz pur e alcohol) on weekends Sex Assigned at Date Recorded Not on file COVID-19 Exposure Response Date Recorded In the last 10 days, have yo u been in contact with someone who was confirmed or suspected to have Coronavirus/COVID-19? No / Unsure 10/21/2022 2:12 PM EST documented as of this encounter Plan of Treatment Not on file documented as of this encounter Procedures Procedure Name Priority Date/Time Associated Diagnosis Comments OUTSIDE LAB Routine 10/20/2022 documented in this encounter Results * OUTSIDE LAB (10/20/2022) Provider Abstract LAB documented in this encounter Visit Diagnoses Not on filedocumented in this encounter Care Teams Director Strategic Planning Relationship Specialty Start Date End Date Flower Hummel PA-C [address] [place] [address] [address] [place] [address] PCP - General Internal Medicine 10/15/22 Umesh Zuniga MD [address] [place] [address] [address] [place], [place] [id number] Bridge Crane Operator Cardiovascular Disease 08/29/22 Mary Sharma NP [address] [place] [address] [address] [place] [address] Nurse Practitioner Cardiology 06/10/23 12/17/23 Johana Mauricio NP [address] [place] [address] [facility] [place] [address] Nurse Practitioner Cardiology 07/01/23 documented as of this encounter
--- OUTSIDE RECORDS SUMMARY | 2025-07-28 16:13 | XMS_ITS | Encounter Summary ---
Author Organization [facility] Address [address] [place] [address] Care Team Providers Care Insurance Follow Up Representative Name Role Phone Community, Pcp Primary Care Provider Unavailabl e Community, Pcp Primary Care Provider Unavailyves e Uche Iglesias DO Primary Care Provider Unav ailable Umesh Zuniga MD Unavailable [phone] Flower Hummel PA-C Primary Care Provider Un available Mary Sharma CADMIUM LIQUOR MAKER Unavailable [phone] Johana Mauricio CADMIUM LIQUOR MAKER Unavailable [phone] Encounter Details Date Type Department Care Team Description 03/11/2012 [facility] Proxy Form Medical Records [address] [place] [id number] Abstract, Provider Social History Tobacco Use Types Packs/Day Years Used Date Smoking Tobacco: Never Assessed Sex Assigned at Date Recorded Not on file documented as of this encounter Plan of Treatment Not on file documented as of this encounter Visit Diagnoses Not on filedocumented in this encounter Care Teams Insurance Follow Up Representative Relationship Specialty Start Date End Date Community, Pcp PCP - General 05/31/09 02/28/15 Community, Pcp PCP - General Internal Medicine 03/01/15 06/28/18 Uche Iglesias DO PCP - General Internal Medicine 06/29/18 10/14/22 Flower Hummel PA-C [address] [place] [address] [address] [place] [address] PCP - General Internal Medicine 10/15/22 Umesh Zuniga MD [address] [place] [address] [address] [place], [place] [id number] Options Trader Cardiovascular Disease 08/29/22 Mary Sharma NP [address] [place] [address] [address] [place] [address] Nurse Practitioner Cardiology 06/10/23 12/17/23 Johana Mauricio NP [address] [place] [address] [facility] [place] [address] Nurse Practitioner Cardiology 07/01/23 documented as of this encounter
--- OUTSIDE RECORDS SUMMARY | 2025-07-28 16:13 | XMS_ITS | Clinical Summary ---
Author Organization [facility] Address [address] [place] [address] Care Team Providers Care Railroad Surveyor Name Role Phone Umesh Zuniga MD Unavailable Flower Hummel PA-C Primary Care Provider Un available Johana Mauricio NP Unavailable [phone] Allergies Active Allergy Reactions Severity Noted Date Comments Varenicline 05/27/2019 Methotrexate 12/21/2023 Sores in nose and mouth Penicillin G High 10/21/2018 Causes breathing problems Sulfa Drugs High 10/21/2018 Causes breathing problems Medications Medication Sig Dispensed Refills Start Date End Date Status Tofacitinib Citrate ER 11 MG TABLET SR 24 HR Take 1 Tablet by mouth daily. 0 Active amlodipine (NORVASC) 5 MG tabletIndications:NST ANN (non-ST elevated myocardial infarction) (HCC) TAKE 1 TABLET BY MOUTH EVERY DAY 90 Tablet 2 12/07/2023 Active Aspirin Low Dose 81 MG EC tabletIndications:NST ANN (non-ST elevated myocardial infarction) (HCC) TAKE 1 TABLET BY MOUTH EVERY DAY 90 Tablet 2 12/07/2023 Active leflunomide (ARAVA) 20 MG tablet Take 1 Tablet by mouth daily. 0 Active escitalopram (LEXAPRO) 10 MG tablet Take 1 Tablet by mouth daily. 0 10/26/2023 Active Active Problems Problem Noted Date Chest pain 10/14/2023 Last Assessment & Plan: Patient continues to endorse episodes of chest pain which have creased in frequency and duration since her last office visit. She continues to smoke half a pack of cigarettes per day. Is not perform any routine exercise. Cardiac catheterization in 2021 revealed normal coronary arteries, recent stress testing did not reveal any ischemia. Patient does state that this chest pain is ongoing and has worsened. In light of the symptoms as well as previous testing, I have ordered cardiac CT to rule out ischemia. I did discuss that it is unlikely that this is an ischemic process and could be attributed to her increased anxiety. Patient understands she should present to the emergency room should she have ongoing chest pain with accompanying shortness of breath, nausea, vomiting or diaphoresis. Palpitations 07/01/2023 Last Assessment & Plan: He continues to endorse episodes of palpitations. Recent 30-day Holter monitor recently performed in June 2023 did not reveal any sustained arrhythmias, pauses or prolonged episodes of bradycardia. I did again talk to the patient about her nicotine dependence as well as being mindful of her hydration to help further decrease perception of palpitations. I have made no changes to her medications. We did discuss the potential of an implantable loop recorder should she feel her palpitations should increase in frequency and duration. S/P cardiac cath 09/25/2022 Overview: Done at [facility] on 04/03/22 with Sylvie Corrigan - indications: NSTEMI NSTEMI (non-ST elevated myocardial infar ction) 09/25/2022 Last Assessment & Plan: Patient is status post a non-ST segment myocardial infarction most likely induced by nicotine and spasm though not proven. No obstructive disease identified. Recent stress echo normal with no exertional pain or ischemia identified. Patient should continue to avoid beta-rod therapy. Should continue on amlodipine for possible spasm. We discussed smoking cessation she has tried Chantix she has tried Wellbutrin she has tried nitro patches nothing has been successful. Strongly encouraged her to try to decrease her nicotine use. No change in medical management at this time patient should use Motrin for right chest wall discomfort and follow-up in 1 year Unstable angina 09/25/2022 Last Assessment & Plan: Patient continues to endorse episodes of chest pain. We will plan to update a stress echocardiogram to further evaluate etiology of chest pain. She will continue on her current dose of Amlodipine. Patient instructed to call 911 or go to the emergency room should she continue to experience chest pain lasting greater than 10 minutes that does not resolve with rest. BRCA2 gene mutation positive 12/01/2018 Rheumatoid arthritis Family History Medical History Relation Name Comments Cancer of the Prostate Maternal Grandfather Cancer of the Breast Maternal Grandmother Cancer of the Breast Mother's side 1 Aunt Cancer of the Pancreas Mother's side 2 Au nt Cancer of the Breast Mother's side 3 1st Cousin, BRCA 2 [positive Cancer of the Breast Sister Autism Son Relation Name Status Comments Maternal Grandfather Maternal Grandmother Other Mother's side 1 Alive Mother's side 2 Alive Mother's side 3 Alive Sister Alive Son Social History Tobacco Use Types Packs/Day Years Used Date Smoking Tobacco: Every Day Cigarettes 0.5 Smokeless Tobacco: Never Tobacco Cessation:Ready to Q uit: Not Asked; Counseling Given: Not Answered Comments:Smokes helf pack daily Alcohol Use Standard Drinks/Week Comments Yes 0 (1 standard drink = 0.6 oz pur e alcohol) on weekends Sex Assigned at Date Recorded Not on file Last Filed Vital Signs Vital Sign Reading Time Taken Comments Blood Pressure 98/70 12/21/2023 11:12 AM EDT Pulse 83 12/21/2023 11:12 AM EDT Temperature 36.6 C (97.9 F) 06/29/2019 10:06 AM EDT Respiratory Rate - - Oxygen Saturation 98% 12/21/2023 11:12 AM EDT Inhaled Oxygen Concentration - - Weight 50.9 kg (112 lb 3.2 oz) 12/21/2023 11:12 AM EDT Height 157.5 cm (5' 2 ) 12/21/2023 11:12 AM EDT Body Mass Index 20.52 12/21/2023 11:12 AM EDT Plan of Treatment Health Maintenance Due Date Last Done Comments Covid-19 Vaccine (#1) 06/10/1989 BASELINE HEALTH EXAM 18-39 12/09/2007 DTAP/TDAP/TD (1 - Tdap) 12/09/2007 CHOLESTEROL SCREENING 2008 CERVICAL CANCER SCREENING 2009 DEPRESSION SCREENING/FOLLOWUP 09/21/2024 SOCIAL NEEDS SCREENING 09/21/2024 INFLUENZA (#1) 2025 PNEUMOCOCCAL VACCINE FOR HIGH RISK PATIENTS (#1) 12/08 Care Teams Railroad Surveyor Relationship Specialty Start Date End Date Flower Hummel PA-C [address] [place] [address] [address] [place] [address] PCP - General Internal Medicine 10/15/22 Umesh Zuniga MD [address] [place] [address] [address] [place] [address] Chlorination Operator Cardiovascular Disease 08/29/22 Johana Mauricio NP [address] [place] [address] [facility] [place] [address] Nurse Practitioner Cardiology 07/01/23
[2025-07-28 17:57] LABS: MANUAL DIFF FLAG NO
[2025-07-28 18:22] LABS: Alanine Aminotransferase 18 U/L (0-31); Aspartate Amino Transferase 24 U/L (5-31); Estimated Glomerular Filt Rate > 60
[2025-07-28 18:35] LABS: Hematocrit 43.8 % (37.0-47.0); Hemoglobin 14.1 g/dl (12.0-16.0); Imm Gran Abs Auto 0.06 X10*3/uL (0.00-0.03); Imm Gran Pct Auto 0.5 % (0.0-0.4); Lymphocytes Absolute Auto 2.7 X10*3/uL (1.2-4.9); Mean Corpuscular HGB Conc 32.2 g/dl (31.0-35.0); Mean Corpuscular Hemoglobin 29.9 pg (27.0-33.0); Mean Corpuscular Volume 93.0 fL (80.0-98.0); NRBC Abs Auto 0.000 X10*3/uL (0.0-0.012); NRBC Pct Auto 0.0 /100WBC (0.0-0.2); Platelet Count 358 X10*3/uL (160-400); Red Blood Count 4.71 X10*6/uL (4.20-5.50); White Blood Count 12.1 X10*3/uL (4.8-10.8)
== END 2025-07-28 14:45 | disposition home or self-care (01) ==
LOC: HO.HKASLDS 14:44
PROVIDERS: PCP Internal Medicine; Visit Provider Internal Medicine Rheumatology
DX: Z79.899 Other long term (current) drug therapy (principal)
CPT/HCPCS: 36415; 82565; 84450; 84460; 85025; 85652; 86140

== ENCOUNTER 2025-08-31 11:00 | Outpatient (AMB) | payer OTHER, SELFPAY ==
--- NOTE | 2025-08-31 11:02 | A.OFFVIS_ITS ---
Vital Signs 08/31/25 11:03 Height 5 ft 4 in Weight 123 lb 7.342 oz BMI 21.2 BP 120/80 Blood Pressure Location Rt brachial Position Sitting Pulse 96 Pulse Source Pulse Oximeter Pulse Oximetry (%) 99 Oxygen Delivery Method Room Air Intake Visit Reasons: foot Pain Intake Note: Patient presents today for RA. Accompanied by: Self / Same As Patient Allergies methotex Allergy (Mild, Uncoded 02/28/25 09:24) Anaphylaxis penicillin Allergy (Unknown, Uncoded 02/28/25 09:24) Anaphylaxis sulfa Allergy (Unknown, Uncoded 02/28/25 09:24) Anaphylaxis HPI HPI foot Pain: Details: After Actemra she developed hives on her trunk. She is experiencing pruritus. It has improved. Right foot is swollen impairing her function at work. No recent infection. 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 Good respiratory effort Skin: No lesions seen MSK: Tender to palpate bilateral MCPs, PIPs, shoulders, knees and MTPs. Normal range of motion of upper extremities and lower extremities. She has synovitis of left wrist and right MTPs. Assessment & Plan Assessment & Plan (1) Rheumatoid arthritis: Comment: Uncontrolled. She continues to have right MTP synovitis impairing her function. She has failed treatment with Depo-Medrol and prednisone course. I will try another course of prednisone starting at a higher dose to control inflammatory arthritis. In the past she had agitation when she was on a long course of prednisone starting with higher dose when her rheumatoid arthritis was more severe. She is willing to try higher dose of prednisone with monitoring of her mood. She will call office if she is experiencing adverse reaction to prednisone. She recently started subcutaneous injection Actemra and has experi ence and adverse reaction of hives. We discussed pretreatment with cetirizine. 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 Failed NSAIDs meloxicam and naproxen initially for treatment of palindromic rheumatism. Hydroxychloroquine caused a trunk rash and aggression. Mouth sores on methotrexate 7.5 mg once weekly with folic acid. Enbrel caused drug rash with hives that lasted 2 months. Humira caused rash with hives. Reaction to Cimzia where she locked up the InStent she gave herself the subcutaneous injection and could not move afterwards. Remicade induction dose March 2021 1st dose caused abdominal pain, loose stools, ear popping, rhinorrhea. She then developed ear infection and thrush. She had no future reaction or infection after 2nd induction dose without pretreatment. 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 She was on leflunomide 01/2023-01/2024. Recurrent URIs with combination Xeljanz and leflunomide leading to discontinuation January 2025. Prednisone >than 20 mg q.day causes aggression. Code(s): M06.9 - Rheumatoid arthritis, unspecified Category: Medical Plan: She will purchase cetirizine and give herself 1 dose 10 mg today. Continue Actemra 162mg subcutaneous injection with cetirizine 10 mg pretreatment 15 minutes before subcutaneous injection. She will also need labs 1 month after starting Actemra with fasting lipid panel, CBC, ANC, creatinine, AST, ALT, ESR, CRP. Prednisone course prescribed Return to clinic in 2 months (2) Other assistant terminal manager (current) drug therapy: Code(s): Z79.899 - Other longterm (current) drug therapy Category: Medical Plan: See above Medications: New prednisone Take 4 tablets daily 1 week, 3 tablets daily 1 week, 2 tablets daily 1 week, 1 tablet daily 1 week, 1/2 tablet daily 1 week then stop. 10 mg PO DIRECTED 74 tabs 0RF Coding Level of Care Code Est Pt Level 4 (06510) Add On Problem Visit Only Diagnoses Rheumatoid arthritis M06.9 Other longterm (current) drug therapy Z79.899
[2025-08-31 11:03] VITALS: BP 120/80; PULSE 96; O2SAT 99; BMI 21.2
== END 2025-08-31 11:31 | disposition home or self-care (01) ==
LOC: HO.RHES 11:01
PROVIDERS: PCP Internal Medicine; Visit Provider Internal Medicine Rheumatology
DX: M06.9 Rheumatoid arthritis, unspecified (principal); Z79.899 Other long term (current) drug therapy
CPT/HCPCS: 99214

== ENCOUNTER → 2025-08-31 11:00 | Outpatient (BNVA) | payer OTHER, SELFPAY | PROVIDERS: PCP Internal Medicine; Visit Provider Internal Medicine Rheumatology | DX: M05.9 Rheumatoid arthritis with rheumatoid factor, unspecified (principal); Z79.899 Other long term (current) drug therapy | CPT/HCPCS: 99212 ==